=== PATIENT | male | born 1960 | race Hispanic/Latino ===

== ENCOUNTER 2018-04-19 16:46 | Emergency (ER) | payer BC, OTHER ==
[~2018-04-19 16:46] MED LIST: AMOX-429 PO; LISI10TA7 PO; ONDA4TAB10 PO; PANT40TA25 PO; TYL3 PO
[2018-04-19] MEDS ORDERED: ONDANSETRON HCL 4 MG/2 ML VIAL ONE (17:32)
[2018-04-19] MEDS ORDERED: SODIUM CHLORIDE 0.9% 1000ML 1,000 ML IV ONE (17:32)
[2018-04-19 17:35] LABS: BASOPHILS % (AUTO) 0.3 % (0.0-5.0); EOSINOPHILS % (AUTO) 0.1 % (0.0-8.0); HEMATOCRIT 46.1 % (42-54); LYMPHOCYTES % (AUTO) 3.7 % (21.0-51.0); MEAN CORPUSCULAR HEMOGLOBIN 28.5 pg (27.0-33.0); MEAN CORPUSCULAR HGB CONC 34.4 g/dL (32.0-36.0); MEAN CORPUSCULAR VOLUME 82.8 fL (79-99); MONOCYTES % (AUTO) 4.2 % (3.0-13.0); NEUTROPHILS % (AUTO) 91.7 % (40.0-77.0); PLATELET COUNT (AUTO) 239 K/uL (130-400); RED BLOOD CELL COUNT(AUTO) 5.57 MIL/uL (4.50-6.20); RED CELL DISTRIBUTION WIDTH 13.3 % (11.0-15.5); WHITE BLOOD COUNT (AUTO) 10.6 K/uL (4.8-10.8)
[2018-04-19 18:12] LABS: POTASSIUM 3.8 mmol/L (3.5-5.1)
[2018-04-19 18:16] LABS: ALBUMIN 3.6 g/dL (3.5-5.0); BILIRUBIN,TOTAL 0.9 mg/dL (0.2-1.0); TOTAL PROTEIN, SERUM 8.2 g/dL (6.0-8.3)
== END 2018-04-19 19:49 | disposition home or self-care (01) ==
LOC: EDH 16:46
DX: K52.9 Noninfective gastroenteritis and colitis, unspecified (principal); E11.9 Type 2 diabetes mellitus without complications; Z90.49 Acquired absence of other specified parts of digestive tract
CPT/HCPCS: 36415; 80053; 83690; 85025; 93005; 96361; 96374; 99285; J2405; J7030

== ENCOUNTER 2018-05-29 20:20 | Emergency (ER) | payer OTHER ==
[2018-05-29] MEDS ORDERED: IPRATROPIUM/ALBUTEROL SULFATE 3 ML SOLUTION IH ONE (20:46)
[2018-05-29 20:50] LABS: BASOPHILS % (AUTO) 0.4 % (0.0-5.0); HEMATOCRIT 42.2 % (42-54); LYMPHOCYTES % (AUTO) 11.6 % (21.0-51.0); MEAN CORPUSCULAR HEMOGLOBIN 28.5 pg (27.0-33.0); MEAN CORPUSCULAR HGB CONC 34.5 g/dL (32.0-36.0); MEAN CORPUSCULAR VOLUME 82.6 fL (79-99); MONOCYTES % (AUTO) 6.4 % (3.0-13.0); NEUTROPHILS % (AUTO) 80.6 % (40.0-77.0); PLATELET COUNT (AUTO) 239 K/uL (130-400); RED BLOOD CELL COUNT(AUTO) 5.11 MIL/uL (4.50-6.20); RED CELL DISTRIBUTION WIDTH 13.2 % (11.0-15.5); WHITE BLOOD COUNT (AUTO) 11.2 K/uL (4.8-10.8)
[2018-05-29] MEDS ORDERED: METHYLPREDNISOLONE SOD SUCC 40MG/ML 1ML ONE (20:50)
[2018-05-29 20:57] LABS: RAPID GROUP A STREP NEGATIVE (NEGATIVE)
[2018-05-29 21:05] LABS: POTASSIUM 4.1 mmol/L (3.5-5.1)
[2018-05-29 21:11] LABS: ALBUMIN 3.8 g/dL (3.5-5.0); BILIRUBIN,DIRECT 0.2 mg/dL (0.0-0.3); BILIRUBIN,TOTAL 0.6 mg/dL (0.2-1.0); TOTAL PROTEIN, SERUM 8.2 g/dL (6.0-8.3)
[2018-05-29 21:11] LABS: APPEARANCE,URINE Clear (CLEAR); BILIRUBIN,URINE Negative (NEGATIVE); COLOR,URINE Yellow (YELLOW); GLUCOSE, URINE (UA) >=1000 mg/dL (NEGATIVE); KETONES,URINE 15 mg/dL (NEGATIVE); LEUKOCYTE ESTERASE ,URINE Negative (NEGATIVE); NITRATE,URINE Negative (NEGATIVE); OCCULT BLOOD,URINE Negative (NEGATIVE); PROTEIN,URINE Negative (NEGATIVE)
[2018-05-29 21:19] LABS: RBC,URINE 0-1 /HPF (0-1); WBC,URINE 0-1 /HPF (0-1)
[2018-05-29 21:20] LABS: BACTERIA,URINE Rare /HPF (None Seen); MUCUS,URINE Rare LPF (None Seen); SQUAMOUS EPITHELIAL CELL,UR Rare /HPF (0-2)
== END 2018-05-29 23:06 | disposition home or self-care (01) ==
LOC: EDH 20:20
DX: J20.9 Acute bronchitis, unspecified (principal); E11.9 Type 2 diabetes mellitus without complications; Z90.49 Acquired absence of other specified parts of digestive tract
CPT/HCPCS: 36415; 71046; 80048; 80076; 81001; 85025; 87040 ×2; 87804 ×2; 87880; 94640; 94761; 96374; 99285; J2920

== ENCOUNTER 2019-08-04 04:20 | Emergency (ER) | payer OTHER ==
[2019-08-04] MEDS ORDERED: DIAZEPAM 5 MG TABLET ONE (04:56)
[2019-08-04] MEDS ORDERED: KETOROLAC TROMETHAMINE 30MG/ML ONE (04:56)
== END 2019-08-04 06:30 | disposition home or self-care (01) ==
LOC: EDH 04:20
DX: S93.402A Sprain of unspecified ligament of left ankle, initial encounter (principal); E11.9 Type 2 diabetes mellitus without complications; I10 Essential (primary) hypertension; Z98.890 Other specified postprocedural states; X58.XXXA Exposure to other specified factors, initial encounter; Y93.89 Activity, other specified; Y92.098 Other place in other non-institutional residence as the place of occurrence of the external cause; Y99.8 Other external cause status
CPT/HCPCS: 73610; 96372; 99284; J1885

== ENCOUNTER 2019-12-17 23:50 | Inpatient (IN) | payer OTHER ==
[~2019-12-17] VITALS: Ht 170.2 cm; Wt 101.0 kg
[~2019-12-17 23:50] MED LIST changes: -PANT40TA25 PO; +PANT40TA54 PO
[2019-12-18] MEDS ORDERED: ASPIRIN 325 MG TABLET ONE (00:24)
[2019-12-18 00:52] LABS: BASOPHILS % (AUTO) 0.3 % (0.0-5.0); EOSINOPHILS % (AUTO) 2.8 % (0.0-8.0); HEMATOCRIT 42.2 % (42-54); LYMPHOCYTES % (AUTO) 23.3 % (21.0-51.0); MEAN CORPUSCULAR HEMOGLOBIN 27.8 pg (27.0-33.0); MEAN CORPUSCULAR HGB CONC 34.4 g/dL (32.0-36.0); MONOCYTES % (AUTO) 10.2 % (3.0-13.0); PLATELET COUNT (AUTO) 231 K/uL (130-400); RED BLOOD CELL COUNT(AUTO) 5.21 MIL/uL (4.50-6.20); RED CELL DISTRIBUTION WIDTH 12.1 % (11.0-15.5); WHITE BLOOD COUNT (AUTO) 6.8 K/uL (4.8-10.8)
[2019-12-18 00:57] LABS: CREATININE 1.1 mg/dL (0.5-1.5); POTASSIUM 3.8 mmol/L (3.5-5.1)
[2019-12-18] MEDS: NITROGLYCERIN 1GM/1 INCH PACKET TD SCH (01:00)
[2019-12-18 01:01] LABS: ALBUMIN 3.5 g/dL (3.5-5.0); BILIRUBIN,TOTAL 0.4 mg/dL (0.2-1.0); INR 0.93 (0.85-1.15); PARTIAL THROMBOPLASTIN TIME 25.7 SEC (26.3-35.5); PROTHROMBIN TIME 10.1 SEC (9.6-11.6); TOTAL PROTEIN, SERUM 7.9 g/dL (6.0-8.3)
[2019-12-18 01:16] LABS: B-TYPE NATRIURETIC PEPTIDE 34 pg/mL (0-100)
[2019-12-18] MEDS ORDERED: NITROGLYCERIN 1GM/1 INCH PACKET TD ONE ×2 (01:27→08:05)
[2019-12-18] MEDS ORDERED: ACETAMINOPHEN EXTRA STRENGTH 500 MG TABLET ONE (01:27)
[2019-12-18] MEDS ORDERED: GLUCAGON 1MG KIT 1 MG ML IM PRN (02:00)
[2019-12-18] MEDS ORDERED: DEXTROSE 50%-WATER 50 ML DISP.SYRIN IV PRN (02:00)
[2019-12-18] MEDS ORDERED: MORPHINE SULFATE 2 MG/ML 1ML SYG IVP PRN (02:00)
[2019-12-18] MEDS ORDERED: ONDANSETRON HCL 4 MG/2 ML VIAL IV PRN (02:00)
[2019-12-18] MEDS ORDERED: HYDRALAZINE HCL 20 MG/ML VIAL IV PRN (04:00)
[2019-12-18 06:01] LABS: BASOPHILS % (AUTO) 0.5 % (0.0-5.0); EOSINOPHILS % (AUTO) 3.5 % (0.0-8.0); HEMATOCRIT 40.9 % (42-54); LYMPHOCYTES % (AUTO) 22.6 % (21.0-51.0); MEAN CORPUSCULAR HEMOGLOBIN 27.4 pg (27.0-33.0); MEAN CORPUSCULAR HGB CONC 33.7 g/dL (32.0-36.0); MEAN CORPUSCULAR VOLUME 81.2 fL (79-99); MONOCYTES % (AUTO) 11.1 % (3.0-13.0); NEUTROPHILS % (AUTO) 61.8 % (40.0-77.0); PLATELET COUNT (AUTO) 216 K/uL (130-400); RED BLOOD CELL COUNT(AUTO) 5.04 MIL/uL (4.50-6.20); RED CELL DISTRIBUTION WIDTH 12.2 % (11.0-15.5); WHITE BLOOD COUNT (AUTO) 6.3 K/uL (4.8-10.8)
[2019-12-18 06:37] LABS: ALBUMIN 3.2 g/dL (3.5-5.0); BILIRUBIN,TOTAL 0.4 mg/dL (0.2-1.0); THYROID STIMULATING HORMONE 4.57 uIU/mL (0.36-3.74); TOTAL PROTEIN, SERUM 7.2 g/dL (6.0-8.3)
[2019-12-18 06:39] LABS: TROPONIN I 2.18 ng/mL (0.00-0.06)
[2019-12-18 06:56] LABS: HEMOGLOBIN A1C 9.6 % (4.0-6.0)
[2019-12-18] MEDS ORDERED: ENOXAPARIN SODIUM 100 MG/1 ML SQ ONE (08:04)
[2019-12-18] MEDS ORDERED: ASPIRIN 81MG TAB.CHEW ONE (08:04)
[2019-12-18] MEDS ORDERED: HEPARIN 25000 UNITS/250 ML D5W 250 ML IV ONE ×2 (08:05→20:57)
[2019-12-18] MEDS ORDERED: FAMOTIDINE/PF 20 MG/2 ML VIAL IV ONE (08:06)
[2019-12-18] MEDS ORDERED: TICAGRELOR 90 MG TABLET ONE (08:06)
[2019-12-18] MEDS ORDERED: HEPARIN 25000 UNITS/250 ML D5W 250 ML IV PRN (08:15)
[2019-12-18] MEDS ORDERED: TICAGRELOR 90 MG TABLET PO SCH (08:15)
[2019-12-18] MEDS ORDERED: ENOXAPARIN SODIUM 100 MG/1 ML SQ SCH (09:00)
[2019-12-18] MEDS ORDERED: ENOXAPARIN SODIUM 1 MG/KG SQ SCH (09:00)
[2019-12-18] MEDS ORDERED: ASPIRIN 81MG TAB.CHEW PO SCH (09:00)
[2019-12-18] MEDS ORDERED: SODIUM CHLORIDE 0.9% 500ML 500 ML IV SCH (10:25)
[2019-12-18 12:22] LABS: TROPONIN I 2.05 ng/mL (0.00-0.06)
[2019-12-18] MEDS ORDERED: HEPARIN SODIUM 1000UNIT/ML 10ML VIAL IV ONE (14:58)
[2019-12-18] MEDS ORDERED: SODIUM BICARB 8.4% 50ML SYRINGE IVP ONE (14:58)
--- NOTE | 2019-12-18 15:27 | NUR ---
DCP:HOME Sw met with pt who lives with Derrick Pederson [phone]. Pt works at [employer], is independent of all ADLS, no DME or HH services. PCP is Samir Dean and pt uses Ludin okeefe for rx. Plan is home at vt Addendum: 12/18/19 at 1529 by AGATHA ROME Amended: Links added.
[2019-12-18 19:47] LABS: INR 0.97 (0.85-1.15); PARTIAL THROMBOPLASTIN TIME 66.2 SEC (26.3-35.5); PROTHROMBIN TIME 10.5 SEC (9.6-11.6)
[2019-12-19] VITALS (18 sets, daily range): BP systolic 106–150; BP diastolic 56–94
[2019-12-19] MEDS: INSULIN GLARGINE 100 UNITS/ML 10 ML VIAL SQ SCH ×2 (01:00→21:07)
[2019-12-19] MEDS: TICAGRELOR 90 MG TABLET PO SCH ×2 (01:00→09:00)
[2019-12-19] MEDS: INSULIN LISPRO 100 UNIT/ML 3ML SQ SCH ×4 (01:00→17:00)
[2019-12-19] MEDS: ATORVASTATIN CALCIUM 20 MG TABLET PO SCH ×2 (01:00→21:05)
[2019-12-19] MEDS: INSULIN HUMULIN R 100 UNIT/ML 3ML SQ SCH ×5 (01:00→21:00)
[2019-12-19] MEDS: FAMOTIDINE/PF 20 MG/2 ML VIAL IV SCH ×3 (01:00→21:04)
--- NOTE | 2019-12-19 01:03 | NUR ---
Patient arrived in room 404 from ED. No complaints of any chest pain and is aware of the procedure in the am with Dr. John. Night medication were given by SWAPNIL Fritz from ED. Will monitor patient closely
[2019-12-19 02:09] LABS: INR 0.97 (0.85-1.15); PARTIAL THROMBOPLASTIN TIME 82.9 SEC (26.3-35.5); PROTHROMBIN TIME 10.5 SEC (9.6-11.6)
[2019-12-19] MEDS: NITROGLYCERIN 1GM/1 INCH PACKET TD SCH ×3 (05:36→21:08)
[2019-12-19 08:10] LABS: INR 0.97 (0.85-1.15); PARTIAL THROMBOPLASTIN TIME 55.3 SEC (26.3-35.5); PROTHROMBIN TIME 10.5 SEC (9.6-11.6)
[2019-12-19 08:31] LABS: CREATININE 1.2 mg/dL (0.5-1.5); POTASSIUM 4.5 mmol/L (3.5-5.1)
[2019-12-19] MEDS: ASPIRIN 81 MG EC TAB PO SCH (09:00)
[2019-12-19 14:26] LABS: INR 0.97 (0.85-1.15); PARTIAL THROMBOPLASTIN TIME 62.6 SEC (26.3-35.5); PROTHROMBIN TIME 10.5 SEC (9.6-11.6)
[2019-12-19] MEDS ORDERED: LIDOCAINE HCL 2% 20ML ONE (17:36)
[2019-12-19] MEDS ORDERED: NITROGLYCERIN 2 MG/VIAL VIAL IV ONE (17:36)
[2019-12-19] MEDS ORDERED: IOHEXOL 350 MG/ML 100ML INFUS..BTL IV ONE (17:36)
[2019-12-19] MEDS ORDERED: FENTANYL CITRATE PF 50 MCG/1 ML 2ML VIAL ONE (17:36)
[2019-12-19] MEDS ORDERED: MIDAZOLAM HCL 1 MG/ML 2ML VIAL ONE (17:36)
[2019-12-19] MEDS ORDERED: HEPARIN SODIUM 1000UNIT/ML 10ML VIAL ONE (17:39)
[2019-12-19] MEDS ORDERED: NICARDIPINE HCL 25 MG/10 ML ML IV ONE (17:40)
[2019-12-19] MEDS ORDERED: METOPROLOL TARTRATE 25 MG TAB PO SCH (21:00)
[2019-12-20] VITALS (44 sets, daily range): BP systolic 83–164; BP diastolic 52–113
[2019-12-20 04:27] LABS: BASOPHILS % (AUTO) 0.3 % (0.0-5.0); EOSINOPHILS % (AUTO) 1.7 % (0.0-8.0); HEMATOCRIT 39.6 % (42-54); LYMPHOCYTES % (AUTO) 19.9 % (21.0-51.0); MEAN CORPUSCULAR HEMOGLOBIN 27.4 pg (27.0-33.0); MEAN CORPUSCULAR HGB CONC 33.6 g/dL (32.0-36.0); MEAN CORPUSCULAR VOLUME 81.6 fL (79-99); MONOCYTES % (AUTO) 9.4 % (3.0-13.0); NEUTROPHILS % (AUTO) 68.4 % (40.0-77.0); PLATELET COUNT (AUTO) 224 K/uL (130-400); RED BLOOD CELL COUNT(AUTO) 4.85 MIL/uL (4.50-6.20); RED CELL DISTRIBUTION WIDTH 12.3 % (11.0-15.5); WHITE BLOOD COUNT (AUTO) 6.5 K/uL (4.8-10.8)
[2019-12-20 04:45] LABS: B-TYPE NATRIURETIC PEPTIDE 11 pg/mL (0-100)
[2019-12-20 05:34] LABS: MAGNESIUM 1.9 mg/dL (1.80-2.40); POTASSIUM 3.7 mmol/L (3.5-5.1)
[2019-12-20] MEDS: NITROGLYCERIN 1GM/1 INCH PACKET TD SCH ×2 (05:43→12:52)
[2019-12-20] MEDS: INSULIN LISPRO 100 UNIT/ML 3ML SQ SCH ×2 (06:15→12:51)
[2019-12-20] MEDS: INSULIN HUMULIN R 100 UNIT/ML 3ML SQ SCH ×2 (06:16→11:30)
[2019-12-20] MEDS ORDERED: METOPROLOL TARTRATE 25 MG TAB PO SCH (09:00)
[2019-12-20] MEDS: NITROGLYCERIN 0.4 MG SL TAB SL PRN ×3 (09:15→09:25)
[2019-12-20] MEDS: ASPIRIN 81 MG EC TAB PO SCH (09:56)
[2019-12-20] MEDS: FAMOTIDINE/PF 20 MG/2 ML VIAL IV SCH ×2 (09:56→22:17)
[2019-12-20] MEDS ORDERED: NITROGLYCERIN 50 MG/D5% WATER 250 BOT IV SCH ×2 (10:00→20:00)
[2019-12-20] MEDS ORDERED: NITROGLYCERIN 50 MG/D5% WATER 1 BOT ONE ×2 (10:06→11:06)
[2019-12-20] MEDS ORDERED: HEPARIN SODIUM 5000UNIT/ML 1ML VIAL ONE (10:30)
[2019-12-20] MEDS ORDERED: CEFAZOLIN SODIUM 1 GM VIAL IVP PRN (10:30)
[2019-12-20] MEDS ORDERED: HEPARIN SODIUM 5000UNIT/ML 1ML VIAL SQ PRN (10:30)
[2019-12-20] MEDS ORDERED: HEPARIN 25000 UNITS/250 ML D5W 250 ML IV SCH (10:30)
[2019-12-20] MEDS ORDERED: AMINOCAPROIC ACID 250 MG/ML 20 ML VIAL IV ONE ×2 (11:00→11:12)
[2019-12-20] MEDS ORDERED: EPINEPHRINE 1 MG/ML AMPULE ONE (11:00)
[2019-12-20] MEDS ORDERED: HEPARIN SODIUM 1000UNIT/ML 10ML VIAL ONE (11:00)
[2019-12-20] MEDS ORDERED: PROTAMINE SULFATE 10 MG/ML 25ML VIAL IV ONE (11:00)
[2019-12-20] MEDS ORDERED: ESMOLOL HCL 10 MG/ML 10 ML VIAL ONE ×3 (11:00→16:40)
[2019-12-20] MEDS ORDERED: NOREPINEPHRINE BITARTRATE 1 MG/1 ML ML IV ONE (11:00)
[2019-12-20] MEDS ORDERED: LIDOCAINE PF 2% 5ML ABBOJECT ONE ×2 (11:00→11:01)
[2019-12-20] MEDS ORDERED: SODIUM BICARB 50MEQ 50ML VIAL ONE ×4 (11:00→20:27)
[2019-12-20] MEDS ORDERED: PROPOFOL 10 MG/ML 20ML VIAL IV ONE (11:00)
[2019-12-20] MEDS ORDERED: FENTANYL CITRATE PF 50 MCG/1 ML 20ML VIAL IJ ONE (11:01)
[2019-12-20] MEDS ORDERED: MIDAZOLAM HCL 1 MG/ML 2ML VIAL ONE (11:01)
[2019-12-20] MEDS ORDERED: ROCURONIUM 10MG/1ML SYR 10 MG/ML ML ONE ×2 (11:01→20:24)
[2019-12-20] MEDS ORDERED: ETOMIDATE 2 MG/ML 10 ML VIAL ONE (11:05)
[2019-12-20] MEDS ORDERED: CEFAZOLIN SODIUM 1 GM VIAL ONE ×2 (11:06→20:41)
[2019-12-20] MEDS ORDERED: PAPAVERINE HCL 30 MG/ML 2ML VIAL ONE (11:06)
[2019-12-20] MEDS ORDERED: OCTYL 2-CYANOACRYLATE 1 EACH TP ONE (11:06)
[2019-12-20] MEDS ORDERED: SUCCINYLCHOLINE CHLORIDE 20 MG/ML 10 ML VIAL ONE (11:07)
[2019-12-20] MEDS ORDERED: AMIODARONE HCL 50 MG/ML 3 ML VIAL ONE ×2 (11:08→19:26)
[2019-12-20] MEDS ORDERED: EPINEPHRINE 1 MG/ML 30ML VIAL IJ ONE (11:15)
[2019-12-20 11:45] LABS: CHOLESTEROL 124 mg/dL (<200); HDL CHOLESTEROL 82 mg/dL (29-71); LDL DIRECT 81 mg/dL (0-99); TRIGLYCERIDES 52 mg/dL (30-200)
[2019-12-20 11:54] LABS: HEMOGLOBIN A1C 9.7 % (4.0-6.0)
--- NOTE | 2019-12-20 12:56 | NUR ---
Patient experienced sob, n/v, cp, left jaw and arm pain at approximately 0910. Patient alerted me to this pain at 0913. Nitro sublingual administered at 0915, 0920, 0925. No relief of pain reported. Morphine 2 mg administered at approximately [address] Mendenhall was paged. EKG done at that time. orders were give to transfer to ICU immediately. Yoon KRAFT received report.
[2019-12-20 13:25] LABS: INR 1.07 (0.85-1.15); PROTHROMBIN TIME 11.5 SEC (9.6-11.6)
[2019-12-20 13:51] LABS: PARTIAL THROMBOPLASTIN TIME > 120.0 SEC (26.3-35.5)
[2019-12-20] MEDS ORDERED: SODIUM CHLORIDE 0.9% 1000ML 1,000 ML IV ONE (14:35)
--- NOTE | 2019-12-20 16:48 | NUR ---
Pt to CVOR, reports pain-free at time of departure from unit. Report to FIRE LIEUTENANT MARINE, no further questions.
[2019-12-20] MEDS ORDERED: METOPROLOL TARTRATE 1 MG/ML 5ML VIAL IV ONE (17:26)
[2019-12-20 17:34] LABS: ABG BASE EXCESS -4.9 mmol/L (-2.0-3.0); ABG HCO3 19.5 mmol/L (21.0-28.0); ABG OXYGEN SATURATION 99.5 % (95.0-99.0); ABG PCO2 35 mmHg (35-48)
[2019-12-20 18:43] LABS: ABG BASE EXCESS -1.5 mmol/L (-2.0-3.0); ABG HCO3 22.5 mmol/L (21.0-28.0); ABG OXYGEN SATURATION 98.9 % (95.0-99.0); ABG PCO2 36 mmHg (35-48)
[2019-12-20] MEDS ORDERED: SODIUM BICARB 8.4% 50ML SYRINGE ONE (18:59)
[2019-12-20] MEDS ORDERED: GLYCOPYRROLATE 1 MG/5 ML SYRINGE ONE (19:04)
[2019-12-20 19:12] LABS: ABG BASE EXCESS 0.8 mmol/L (-2.0-3.0); ABG HCO3 24.7 mmol/L (21.0-28.0); ABG PCO2 37 mmHg (35-48)
[2019-12-20 19:27] LABS: ABG HCO3 25.6 mmol/L (21.0-28.0); ABG OXYGEN SATURATION 92.3 % (95.0-99.0); ABG PCO2 41 mmHg (35-48)
[2019-12-20] MEDS ORDERED: AMIODARONE HCL 450 MG in DEXTROSE 5%-WATER 250 ML IV PRN (19:30)
[2019-12-20] MEDS ORDERED: AMIODARONE HCL 360 MG in DEXTROSE 5%-WATER 200 ML IV SCH (19:45)
[2019-12-20] MEDS ORDERED: DIGOXIN 250 MCG/ML 2ML AMP ONE (19:45)
[2019-12-20] MEDS ORDERED: POTASSIUM CHLORIDE 20MEQ/100ML 200 ML IV ONE (19:49)
[2019-12-20] MEDS ORDERED: SODIUM CHLORIDE 0.9% 500ML 500 ML IV SCH (19:53)
[2019-12-20] MEDS ORDERED: SODIUM CHLORIDE 0.9% 250 ML IV PRN (20:00)
[2019-12-20] MEDS ORDERED: ACETAMINOPHEN 650 MG SUPPOSITORY RC PRN (20:00)
[2019-12-20] MEDS ORDERED: SODIUM CHLORIDE 0.9% 1000ML 1,000 ML IV SCH (20:00)
[2019-12-20] MEDS ORDERED: MORPHINE SULFATE 2 MG/ML 1ML SYG IV PRN ×2 (20:00)
[2019-12-20] MEDS ORDERED: SODIUM CHLORIDE 0.9% 10 ML VIAL IVP PRN (20:00)
[2019-12-20] MEDS ORDERED: TRAMADOL HCL 50 MG TABLET PO PRN ×2 (20:00)
[2019-12-20] MEDS ORDERED: DEXTROSE 50%-WATER 50 ML DISP.SYRIN IV PRN (20:00)
[2019-12-20] MEDS ORDERED: GLUCAGON 1MG KIT 1 MG ML IM PRN (20:00)
[2019-12-20] MEDS ORDERED: EPINEPHRINE 2 MG in DEXTROSE 5%-WATER 250 ML IV PRN (20:00)
[2019-12-20] MEDS ORDERED: NOREPINEPHRINE 4MG/NS 250ML 250 ML IV PRN (20:00)
[2019-12-20] MEDS ORDERED: ACETAMINOPHEN 325 MG TAB PO PRN ×2 (20:00)
[2019-12-20] MEDS ORDERED: ONDANSETRON HCL 4 MG/2 ML VIAL IV PRN (20:00)
[2019-12-20] MEDS ORDERED: PROPOFOL 1000 MG/100 ML 100 ML IV PRN (20:00)
[2019-12-20] MEDS ORDERED: POTASSIUM PHOS 15 mMOL+NS250ML 250 ML IV PRN (20:00)
[2019-12-20] MEDS ORDERED: ALBUMIN (HUMAN) 5% 250 ML IV PRN (20:00)
[2019-12-20] MEDS ORDERED: AMINOCAPROIC ACID 15,000 MG in SODIUM CHLORIDE 0.9% 250 ML IV SCH (20:00)
[2019-12-20 20:02] LABS: ABG BASE EXCESS 0.2 mmol/L (-2.0-3.0); ABG HCO3 24.2 mmol/L (21.0-28.0); ABG OXYGEN SATURATION 98.3 % (95.0-99.0); ABG PCO2 37 mmHg (35-48)
[2019-12-20] MEDS ORDERED: ATROPINE SULFATE 0.1 MG/ML 10 ML SYG IVP ONE (20:27)
[2019-12-20] MEDS ORDERED: PHARMACY COMMUNICATION MISC SCH (20:30)
[2019-12-20 20:32] LABS: ABG BASE EXCESS -1.4 mmol/L (-2.0-3.0); ABG HCO3 22.9 mmol/L (21.0-28.0); ABG OXYGEN SATURATION 97.9 % (95.0-99.0); ABG PCO2 37 mmHg (35-48)
[2019-12-20] MEDS ORDERED: EPINEPHRINE 10 MG in SODIUM CHLORIDE 0.9% 250 ML IV SCH (20:45)
[2019-12-20] MEDS ORDERED: NOREPINEPHRINE BITARTRATE 8 MG/NS 250ML IV SCH ×2 (20:45)
[2019-12-20] MEDS: ATORVASTATIN CALCIUM 20 MG TABLET PO SCH (21:00)
--- NOTE | 2019-12-20 21:30 | NUR ---
CVR PT ARRIVED TO CVR AT 2104. PT SEDATED AND INTUBATED PLACED ON MECHANICAL VENTILATION VIA ET TUBE 8.0 TAPPED AT APPROXIMATELY 22 CM AT LIP. VENT SETTING SIMV RATE 12, VT 750, PEEP 7, FIO2 80% AND PS 10. COARSE BREATH SOUNDS AUSCULTATED TO ALL LUNG FUENTES. OG TUBE NOTED PLACEMENT ASSESSED AND CONFIRMED WITH AIR BOLUS THEN PLACED TO LIWS BOWEL SOUNDS ABSENT AT THIS TIME. MID LINE INCISION DRESSING DRY AND INTACT. MEDIASTINAL CHEST TUBES X 2 NOTED PLACED TO 20CM H20 SUCTION DRAINAGE IS SANGUINEOUS IN COLOR. RIGHT FEMORAL IABP NOTED SET AT 1:1. BUSTOS TO GRAVITY DRAINAGE IS PALE YELLOW. LEFT LEG WRAPPED WITH CAESAR BANDAGE. RIJ CORDIS WITH SWAN AT APPROXIMATELY 56CM. LEFT RADIAL A LINE. PIV TO LEFT FOREARM AND RIGHT AC FLUSH WELL. IV DRIPS LEVOPHED AT 5MCG/MIN, EPINEPHRINE AT 0.05 MCG/KG/MIN, AMICAR AT 50ML/HR, AMIODARONE AT 33.3 ML/HR. SEE ASSESSMENT.
[2019-12-20 21:42] LABS: ABG HCO3 25.1 mmol/L (21.0-28.0); ABG OXYGEN SATURATION 96.8 % (95.0-99.0); ABG PCO2 47 mmHg (35-48)
[2019-12-20 21:59] LABS: HEMATOCRIT 40.4 % (42-54); MEAN CORPUSCULAR HGB CONC 34.2 g/dL (32.0-36.0); MEAN CORPUSCULAR VOLUME 82.1 fL (79-99); PLATELET COUNT (AUTO) 306 K/uL (130-400); RED BLOOD CELL COUNT(AUTO) 4.92 MIL/uL (4.50-6.20); RED CELL DISTRIBUTION WIDTH 12.4 % (11.0-15.5); WHITE BLOOD COUNT (AUTO) 29.5 K/uL (4.8-10.8)
[2019-12-20 22:07] LABS: INR 1.03 (0.85-1.15); PARTIAL THROMBOPLASTIN TIME 19.9 SEC (26.3-35.5); PROTHROMBIN TIME 11.1 SEC (9.6-11.6)
[2019-12-20 22:10] LABS: CREATININE 1.4 mg/dL (0.5-1.5); MAGNESIUM 1.5 mg/dL (1.80-2.40); PHOSPHORUS 4.8 mg/dL (2.5-4.9); POTASSIUM 3.3 mmol/L (3.5-5.1)
[2019-12-20] MEDS: SODIUM BICARB 50MEQ 50ML VIAL IV PRN ×3 (22:16→22:56)
[2019-12-20] MEDS: POTASSIUM CHLORIDE 20MEQ/100ML 100 ML IV PRN ×3 (22:16→23:06)
[2019-12-20] MEDS: INSULIN REGULAR, HUMAN 3ML 100 UNIT in SODIUM CHLORIDE 0.9% 99 ML IV SCH ×2 (22:18)
[2019-12-20] MEDS: MAGNESIUM 2GM PREMIX 50ML 50 ML IV PRN (22:46)
[2019-12-20 22:51] LABS: ABG BASE EXCESS -2.3 mmol/L (-2.0-3.0); ABG HCO3 23.1 mmol/L (21.0-28.0); ABG OXYGEN SATURATION 97.9 % (95.0-99.0); ABG PCO2 42 mmHg (35-48)
[2019-12-20] MEDS ORDERED: ALBUMIN (HUMAN) 5% 250 ML IV ONE (23:11)
[2019-12-21] VITALS (67 sets, daily range): BP systolic 74–142; BP diastolic 44–82
[2019-12-21 00:03] LABS: ABG BASE EXCESS -2.4 mmol/L (-2.0-3.0); ABG OXYGEN SATURATION 98.3 % (95.0-99.0); ABG PCO2 37 mmHg (35-48)
[2019-12-21] MEDS: SODIUM BICARB 50MEQ 50ML VIAL IV PRN ×4 (00:04→02:17)
[2019-12-21] MEDS: POTASSIUM CHLORIDE 20MEQ/100ML 100 ML IV PRN ×8 (00:04→05:40)
[2019-12-21] MEDS ORDERED: ALBUMIN (HUMAN) 5% 250 ML IV ONE (00:19)
[2019-12-21] MEDS: DIGOXIN 250 MCG/ML 2ML AMP IV SCH ×2 (00:35→06:33)
[2019-12-21] MEDS ORDERED: CEFAZOLIN SODIUM 1 GM VIAL IV SCH (01:00)
[2019-12-21 01:10] LABS: ABG BASE EXCESS -1.2 mmol/L (-2.0-3.0); ABG HCO3 23.5 mmol/L (21.0-28.0); ABG OXYGEN SATURATION 98.2 % (95.0-99.0); ABG PCO2 40 mmHg (35-48)
[2019-12-21] MEDS ORDERED: CALCIUM GLUCONATE 1 GM/10 ML VIAL IV ONE (01:14)
[2019-12-21] MEDS: CALCIUM GLUCONATE 1 GM in SODIUM CHLORIDE 0.9% 50 ML IV PRN ×3 (01:15→23:48)
[2019-12-21] MEDS: CEFAZOLIN SODIUM 1 GM VIAL IV SCH ×3 (02:05→17:17)
[2019-12-21 02:09] LABS: ABG OXYGEN SATURATION 97.4 % (95.0-99.0); ABG PCO2 36 mmHg (35-48)
[2019-12-21] MEDS ORDERED: SODIUM BICARB 50MEQ 50ML VIAL ONE (02:31)
[2019-12-21] MEDS ORDERED: FUROSEMIDE 10 MG/ML 4ML VIAL IV SCH (03:00)
[2019-12-21 03:05] LABS: ABG BASE EXCESS 1.3 mmol/L (-2.0-3.0); ABG HCO3 25.4 mmol/L (21.0-28.0); ABG OXYGEN SATURATION 96.7 % (95.0-99.0); ABG PCO2 38 mmHg (35-48)
--- NOTE | 2019-12-21 03:22 | NUR ---
LASIX LASIX HELD AT THIS TIME BREATH SOUNDS CLEAR AND URINE OUTPUT HAS BEEN ADEQUATE > 200 ML/HR.
[2019-12-21 04:32] LABS: INR 1.04 (0.85-1.15); PARTIAL THROMBOPLASTIN TIME 26.8 SEC (26.3-35.5); PROTHROMBIN TIME 11.2 SEC (9.6-11.6)
[2019-12-21 04:46] LABS: CREATININE 1.7 mg/dL (0.5-1.5); MAGNESIUM 1.8 mg/dL (1.80-2.40); POTASSIUM 3.5 mmol/L (3.5-5.1)
[2019-12-21 04:59] LABS: ABG BASE EXCESS 3.2 mmol/L (-2.0-3.0); ABG HCO3 26.1 mmol/L (21.0-28.0); ABG OXYGEN SATURATION 97.7 % (95.0-99.0); ABG PCO2 34 mmHg (35-48)
[2019-12-21 05:07] LABS: BASOPHILS % (AUTO) 0.1 % (0.0-5.0); HEMATOCRIT 34.8 % (42-54); LYMPHOCYTES % (AUTO) 3.5 % (21.0-51.0); MEAN CORPUSCULAR HEMOGLOBIN 27.7 pg (27.0-33.0); MEAN CORPUSCULAR HGB CONC 33.3 g/dL (32.0-36.0); MEAN CORPUSCULAR VOLUME 83.1 fL (79-99); MONOCYTES % (AUTO) 7.8 % (3.0-13.0); NEUTROPHILS % (AUTO) 88.1 % (40.0-77.0); PLATELET COUNT (AUTO) 257 K/uL (130-400); RED BLOOD CELL COUNT(AUTO) 4.19 MIL/uL (4.50-6.20); RED CELL DISTRIBUTION WIDTH 12.5 % (11.0-15.5); WHITE BLOOD COUNT (AUTO) 20.5 K/uL (4.8-10.8)
[2019-12-21] MEDS: MAGNESIUM 2GM PREMIX 50ML 50 ML IV PRN (05:12)
[2019-12-21 05:19] LABS: PHOSPHORUS 0.3 mg/dL (2.5-4.9)
[2019-12-21] MEDS ORDERED: PHARMACY COMMUNICATION MISC SCH (05:30)
--- NOTE | 2019-12-21 06:45 | NUR ---
DR. CHRISTOPHER WHITE APPROACHED AT THIS TIME FOR IABP PLACEMENT ON XRAY WHICH HE ADVANCED AT THIS TIME. CHEST X RAY ORDERED. WILL CONTINUE TO MONITOR.
--- NOTE | 2019-12-21 08:45 | NUR ---
DR. NESBITT HERE AND WAS GIVEN REPORT ON THE NIGHT EVENTS AND HEMODYNAMICS DURING THE NIGHT. WAS ADVISED OF THE IABP PLACEMENT AND DR. WHITE ADJUSTING THE IABP POSITION AND XRAY WAS DONE. COAG STUDIES WERE ADVISED AND THE IABP WAS DC'D PER DR. NESBITT AND PRESSURE WAS HELD FOR 30 MINUTES.
[2019-12-21] MEDS ORDERED: ASPIRIN 81MG TAB.CHEW NG SCH (09:00)
[2019-12-21 09:35] LABS: ABG BASE EXCESS 7.8 mmol/L (-2.0-3.0); ABG HCO3 31.5 mmol/L (21.0-28.0); ABG OXYGEN SATURATION 95.2 % (95.0-99.0); ABG PCO2 41 mmHg (35-48)
--- NOTE | 2019-12-21 09:40 | NUR ---
PT WAS WEANED TO RR OF 4 AND MET PARAMETERS REQUIRED FOR EXTUBATION AND WAS EXTUBATED PER PROTOCOL. AEROSOL MASK WAS OBTAINED AND PLACED AT 40%.
[2019-12-21] MEDS: FAMOTIDINE/PF 20 MG/2 ML VIAL IV SCH ×2 (09:58→21:10)
[2019-12-21] MEDS: DIGOXIN 125 MCG TABLET PO SCH ×3 (09:59→16:26)
[2019-12-21] MEDS: AMIODARONE HCL 200 MG TABLET PO SCH ×2 (10:00→21:10)
[2019-12-21] MEDS: FUROSEMIDE 10 MG/ML 4ML VIAL IV SCH ×2 (10:33→21:13)
--- NOTE | 2019-12-21 13:53 | NUR ---
Brand new surgery in AM. Wait PT for Sunday. Addendum: 12/21/19 at 1355 by ALFA GEORGE, PT PT Amended: Links added.
[2019-12-21] MEDS: INSULIN REGULAR, HUMAN 3ML 100 UNIT in SODIUM CHLORIDE 0.9% 99 ML IV SCH ×2 (16:29)
--- NOTE | 2019-12-21 16:45 | NUR ---
PT WAS TRANSFERRED TO ROOM 209. PT HAD O2 CHANGED TO NASAL CANNULA AT 5 LITERS. PT WAS ASSESSED BY DR. MARSH AND ORDERS NOTED ABG'S WERE OBTAINED AND DR. MARSH WAS NOTIFIED OF RESULTS. RESP. THERAPISTS WERE NOTIFIED OF BIPAP ORDERS.
[2019-12-21 17:06] LABS: ABG BASE EXCESS 9.2 mmol/L (-2.0-3.0); ABG HCO3 32.6 mmol/L (21.0-28.0); ABG OXYGEN SATURATION 92.4 % (95.0-99.0); ABG PCO2 40 mmHg (35-48)
[2019-12-21] MEDS: ATORVASTATIN CALCIUM 40 MG TABLET PO SCH (21:10)
[2019-12-21 22:52] LABS: CREATININE 1.6 mg/dL (0.5-1.5); POTASSIUM 4.5 mmol/L (3.5-5.1)
[2019-12-22] VITALS (37 sets, daily range): BP systolic 87–133; BP diastolic 36–71
[2019-12-22 04:24] LABS: BASOPHILS % (AUTO) 0.2 % (0.0-5.0); EOSINOPHILS % (AUTO) 0.7 % (0.0-8.0); LYMPHOCYTES % (AUTO) 6.1 % (21.0-51.0); MEAN CORPUSCULAR HGB CONC 32.9 g/dL (32.0-36.0); MEAN CORPUSCULAR VOLUME 85.4 fL (79-99); MONOCYTES % (AUTO) 8.6 % (3.0-13.0); NEUTROPHILS % (AUTO) 83.9 % (40.0-77.0); PLATELET COUNT (AUTO) 144 K/uL (130-400); RED CELL DISTRIBUTION WIDTH 13.2 % (11.0-15.5); WHITE BLOOD COUNT (AUTO) 17.4 K/uL (4.8-10.8)
[2019-12-22 04:38] LABS: CREATININE 1.5 mg/dL (0.5-1.5); POTASSIUM 4.3 mmol/L (3.5-5.1)
[2019-12-22 05:06] LABS: MAGNESIUM 2.1 mg/dL (1.80-2.40); PHOSPHORUS 3.8 mg/dL (2.5-4.9)
[2019-12-22 05:08] LABS: INR 1.19 (0.85-1.15); PARTIAL THROMBOPLASTIN TIME 34.5 SEC (26.3-35.5); PROTHROMBIN TIME 12.8 SEC (9.6-11.6)
[2019-12-22] MEDS: FAMOTIDINE 20MG TAB 20 MG TAB PO SCH (08:27)
[2019-12-22] MEDS: AMIODARONE HCL 200 MG TABLET PO SCH ×2 (08:27→21:16)
[2019-12-22] MEDS: FUROSEMIDE 10 MG/ML 2ML VIAL IV SCH ×2 (08:27→21:15)
[2019-12-22] MEDS: ASPIRIN 325MG EC TAB 325 MG TABLET.DR PO SCH (08:28)
--- NOTE | 2019-12-22 10:36 | NUR ---
CHEST TUBE, SWAN-PORFIRIO CATHETER REMOVAL Chest tube x2 and swan-porfirio catheter removed by Paula Tinajero RN. No complications. Pt tolerated well. Dressings intact.
[2019-12-22] MEDS: ENOXAPARIN SODIUM 30 MG/0.3 ML SQ SCH (11:19)
[2019-12-22] MEDS: INSULIN HUMULIN R 100 UNIT/ML 3ML SQ SCH ×3 (11:22→21:17)
[2019-12-22] MEDS ORDERED: LACTULOSE 20 GM/30 ML UDCUP PO PRN (13:00)
[2019-12-22] MEDS: DOCUSATE SODIUM 100 MG CAP PO SCH ×2 (13:00→21:15)
--- NOTE | 2019-12-22 15:00 | NUR ---
BMX1 -[facility]
--- NOTE | 2019-12-22 15:30 | NUR ---
[facility] to SW[facility]IL Russell. All questions answered. Pt transported to 416 by RN x2. Pt's updated on pt status and room change.
[2019-12-22] MEDS: ATORVASTATIN CALCIUM 40 MG TABLET PO SCH (21:15)
[2019-12-23 04:05] LABS: BASOPHILS % (AUTO) 0.2 % (0.0-5.0); EOSINOPHILS % (AUTO) 1.4 % (0.0-8.0); HEMATOCRIT 34.2 % (42-54); LYMPHOCYTES % (AUTO) 8.2 % (21.0-51.0); MEAN CORPUSCULAR HEMOGLOBIN 27.6 pg (27.0-33.0); MEAN CORPUSCULAR HGB CONC 32.2 g/dL (32.0-36.0); MEAN CORPUSCULAR VOLUME 85.7 fL (79-99); MONOCYTES % (AUTO) 6.2 % (3.0-13.0); PLATELET COUNT (AUTO) 113 K/uL (130-400); RED BLOOD CELL COUNT(AUTO) 3.99 MIL/uL (4.50-6.20); RED CELL DISTRIBUTION WIDTH 12.6 % (11.0-15.5); WHITE BLOOD COUNT (AUTO) 12.5 K/uL (4.8-10.8)
[2019-12-23 04:26] LABS: ALBUMIN 2.4 g/dL (3.5-5.0); BILIRUBIN,TOTAL 1.5 mg/dL (0.2-1.0); CREATININE 1.7 mg/dL (0.5-1.5); MAGNESIUM 2.1 mg/dL (1.80-2.40); PHOSPHORUS 2.5 mg/dL (2.5-4.9); POTASSIUM 3.8 mmol/L (3.5-5.1); TOTAL PROTEIN, SERUM 6.4 g/dL (6.0-8.3)
[2019-12-23 04:31] VITALS: BP 117/70
[2019-12-23] MEDS: INSULIN HUMULIN R 100 UNIT/ML 3ML SQ SCH ×4 (06:29→21:00)
[2019-12-23 08:24] VITALS: BP 119/66
[2019-12-23] MEDS ORDERED: POLYETHYLENE GLYCOL 3350 17 GM POWD.PACK PO SCH (09:00)
[2019-12-23] MEDS: ASPIRIN 325MG EC TAB 325 MG TABLET.DR PO SCH (10:23)
[2019-12-23] MEDS: AMIODARONE HCL 200 MG TABLET PO SCH ×2 (10:23→20:17)
[2019-12-23] MEDS: FAMOTIDINE 20MG TAB 20 MG TAB PO SCH (10:23)
[2019-12-23] MEDS: FUROSEMIDE 10 MG/ML 2ML VIAL IV SCH ×2 (10:24→20:16)
[2019-12-23] MEDS: DOCUSATE SODIUM 100 MG CAP PO SCH ×2 (10:24→20:17)
[2019-12-23] MEDS: ENOXAPARIN SODIUM 30 MG/0.3 ML SQ SCH (10:25)
[2019-12-23 11:39] VITALS: BP 115/70
[2019-12-23 16:35] VITALS: BP 118/68
--- NOTE | 2019-12-23 16:36 | NUR ---
CM NOTE/[facility] NEW REFERRAL FOR IRU. MEET WITH PATIENT IN ROOM, OPTIONS FOR IRU GIVEN BASED ON INSURANCE. ANJELICA FILLED FOR [facility], CLINICAL PACKET FAXED AND CONFIRMED RECEIVED. PENDING AUTHORIZATION, CM TO FOLLOW UP.
[2019-12-23 20:00] VITALS: BP 113/66
[2019-12-23] MEDS: ATORVASTATIN CALCIUM 40 MG TABLET PO SCH (20:17)
[2019-12-23] MEDS: METOPROLOL TARTRATE 25 MG TAB PO SCH (20:17)
[2019-12-23 23:03] VITALS: BP 105/65
[2019-12-24 03:05] VITALS: BP 121/71
[2019-12-24 04:37] LABS: BASOPHILS % (AUTO) 0.2 % (0.0-5.0); HEMATOCRIT 33.5 % (42-54); LYMPHOCYTES % (AUTO) 7.5 % (21.0-51.0); MEAN CORPUSCULAR HGB CONC 33.1 g/dL (32.0-36.0); MEAN CORPUSCULAR VOLUME 84.6 fL (79-99); MONOCYTES % (AUTO) 8.4 % (3.0-13.0); NEUTROPHILS % (AUTO) 83.1 % (40.0-77.0); PLATELET COUNT (AUTO) 130 K/uL (130-400); RED BLOOD CELL COUNT(AUTO) 3.96 MIL/uL (4.50-6.20); WHITE BLOOD COUNT (AUTO) 9.9 K/uL (4.8-10.8)
[2019-12-24 04:50] LABS: ALBUMIN 2.1 g/dL (3.5-5.0); BILIRUBIN,DIRECT 0.2 mg/dL (0.0-0.3); BILIRUBIN,TOTAL 0.9 mg/dL (0.2-1.0); CREATININE 1.3 mg/dL (0.5-1.5); MAGNESIUM 2.2 mg/dL (1.80-2.40); PHOSPHORUS 2.8 mg/dL (2.5-4.9); POTASSIUM 3.3 mmol/L (3.5-5.1); TOTAL PROTEIN, SERUM 6.3 g/dL (6.0-8.3)
[2019-12-24] MEDS ORDERED: POTASSIUM CHLORIDE 20 MEQ ERTAB PO ONE (05:06)
[2019-12-24] MEDS ORDERED: POTASSIUM CHLORIDE 10% ELIXIR 20 MEQ/15 ML UDCUP PO PRN (05:15)
[2019-12-24 07:00] VITALS: BP 127/72
[2019-12-24] MEDS: INSULIN HUMULIN R 100 UNIT/ML 3ML SQ SCH ×4 (07:16→21:00)
[2019-12-24] MEDS: ENOXAPARIN SODIUM 30 MG/0.3 ML SQ SCH (09:38)
[2019-12-24] MEDS: METOPROLOL TARTRATE 25 MG TAB PO SCH ×2 (09:39→20:56)
[2019-12-24] MEDS: AMIODARONE HCL 200 MG TABLET PO SCH (09:39)
[2019-12-24] MEDS: ASPIRIN 325MG EC TAB 325 MG TABLET.DR PO SCH (09:40)
[2019-12-24] MEDS: FAMOTIDINE 20MG TAB 20 MG TAB PO SCH (09:40)
[2019-12-24] MEDS: DOCUSATE SODIUM 100 MG CAP PO SCH ×2 (09:40→20:57)
[2019-12-24] MEDS: FUROSEMIDE 10 MG/ML 2ML VIAL IV SCH ×2 (09:42→20:56)
--- NOTE | 2019-12-24 10:00 | NUR ---
dressing's removed from upper chest, upper abdoman and right groin; pt has well approx. inc. line to chest with dermabond glue in place, slight redness along inc. line no drainage or edema, abdoman has 2 small lacerations at site of chest tubes which are now removed, a suture is in place to each approx. the edges of the wound, no fresh drainage and small amount of old drainage on non adherant dressings in place; the groin skin is wnl and the vein harvest site on left leg is well approx. with dermabond--no redness, drainage or edema; all areas left robyn; pt rajwinder. proc. well.
[2019-12-24 11:00] VITALS: BP 109/69
[2019-12-24] MEDS ORDERED: FUROSEMIDE 10 MG/ML 4ML VIAL IV SCH (11:00)
[2019-12-24] MEDS: POTASSIUM CHLORIDE 20 MEQ ERTAB PO PRN ×2 (11:44→16:56)
[2019-12-24] MEDS ORDERED: LOPERAMIDE HCL 2 MG CAP PO PRN (12:45)
[2019-12-24] MEDS ORDERED: LOPERAMIDE HCL 2 MG CAP PO SCH (12:45)
--- NOTE | 2019-12-24 13:30 | NUR ---
during rounding pt stated he had a liquid bm and asked to be cleaned; i asked him how many liquid bm's he had in the past 24 hours and he stated probably 5; i cleaned him up and collected a stool sample to r/u c-diff; while cleaning him up i noted a bruised area on his right butt cheek approx. and a skin tear on his left near his rectum; i have gently cleansed the entire area and applied skin barrier cream; and will apply a waffle mattress and order a wound care consult. sample sent to lab. pt made comfortable in bed, picture taken of wound and developed
[2019-12-24 16:00] VITALS: BP 106/67
--- NOTE | 2019-12-24 16:50 | NUR ---
CM NOTE/ VB IRU VS [facility] CASE DISCUSSED WITH DR. TUCKER. PER NURSE, DR. TORRES PENDING TO ROUND AND SEE PATIENT. DR. TUCKER MADE AWARE OF VB IRU ACCEPTANCE BUT PENDING BED UNTIL TUESDAY 12/26. PER MDDR. TORRES TO DECIDE IF WHEN DC DATE IS. PRIMARY NURSE, GM RN, WILL CALL DR. TORRES TO SEE WHEN PATIENT CAN DC. CALL MADE TO SPOUSE, KALANI JAMIL [phone] AND TOLD HER ABOUT VB IRU. PER SPOUSE, OPEN TO [facility], ANJELICA FILLED. CASE DISCUSSED WITH PATIENT, WOULD LIKE TO STAY IN [facility] BUT WILLING TO STAY AT [facility] IF NEEDED. GM KRAFT AND BRI RN INSTRUCTED TO CALL DR. TORRES OR DR. PAINTING FOR ANTICIPATED DC DATE. REFERRAL SET TO [facility], JEET CONFIRMED RECEIVED. I PLACED CALL TO DR. MERT MD TO LAST ROUND, NO ANSWER, UNABLE TO LEAVE VOICEMAIL. PENDING ANTICIPATED DC DATE, STILL ON LASIX IV. CM TO FOLLOW UP.
[2019-12-24 17:42] LABS: CREATININE 1.2 mg/dL (0.5-1.5); POTASSIUM 3.2 mmol/L (3.5-5.1)
[2019-12-24 19:43] VITALS: BP 120/70
[2019-12-24] MEDS: ATORVASTATIN CALCIUM 40 MG TABLET PO SCH (20:56)
[2019-12-24 23:19] VITALS: BP 103/57
[2019-12-25 04:15] VITALS: BP 110/65
[2019-12-25] MEDS: INSULIN HUMULIN R 100 UNIT/ML 3ML SQ SCH ×4 (06:20→21:51)
[2019-12-25 06:56] LABS: CREATININE 1.1 mg/dL (0.5-1.5); POTASSIUM 3.3 mmol/L (3.5-5.1)
[2019-12-25 08:11] VITALS: BP 126/72
[2019-12-25] MEDS: DOCUSATE SODIUM 100 MG CAP PO SCH ×2 (10:18→20:46)
[2019-12-25] MEDS: FAMOTIDINE 20MG TAB 20 MG TAB PO SCH (10:18)
[2019-12-25] MEDS: METOPROLOL TARTRATE 25 MG TAB PO SCH ×2 (10:18→20:46)
[2019-12-25] MEDS: ASPIRIN 325MG EC TAB 325 MG TABLET.DR PO SCH (10:18)
[2019-12-25] MEDS: AMIODARONE HCL 200 MG TABLET PO SCH (10:19)
[2019-12-25] MEDS: FUROSEMIDE 10 MG/ML 2ML VIAL IV SCH ×2 (10:19→20:46)
[2019-12-25] MEDS: ENOXAPARIN SODIUM 30 MG/0.3 ML SQ SCH (10:20)
[2019-12-25] MEDS: POTASSIUM CHLORIDE 20 MEQ ERTAB PO PRN ×2 (10:21→12:46)
--- NOTE | 2019-12-25 10:48 | NUR ---
RDSCREEN - LOS X 6 Pt admitted with Acute Chest Pain. Pt s/p CABG. Upon visit, Pt reports poor appetite, no report of GI distress. Preference for fruit with meals. Pt with Buttock Ulcer, Left and Right (DTI). RD provided CABG, Wound Healing, Mediterranean Nutrition Education Pt with Obesity Class II (BMI 35.3). Recommend add Glucerna BID Recommend Tristan BID for wound healing support Recommend 500mg Ascorbic Acid, 220mg ZnSO4 for wound healing support Recommend continue Heart Healthy, 75gm CC Diet Order. RD to continue to monitor. Please notify as additional nutrition concerns arise. Thank you. Addendum: 12/25/19 at [address] Amended: Links added.
--- NOTE | 2019-12-25 10:55 | NUR ---
NUTRITION EDUCATION YUAN provided CABG/Meditteranean/Wound Healing Nutrition Education. YUAN reviewed reference materials and handouts with Pt and answered all Pt questions. Pt verbalized understanding. Addendum: 12/25/19 at [address] Amended: Links added.
[2019-12-25 11:39] VITALS: BP 114/69
--- NOTE | 2019-12-25 15:17 | NUR ---
CM NOTE/ IRU APPROVED PER NEMESIO AT IRU, AUTHORIZATION RECEIVED. PATIENT TO BE TRANSFERRED TOMORROW AFTER IV LASIX COMPLETED PER DR. PADGETT. FAMILY AND PRIMARY NURSE, ALEXANDRIA KRAFT, MADE AWARE.
--- NOTE | 2019-12-25 16:28 | NUR ---
[facility] consult Patient assessed as ordered. [facility] recommendations submitted per protocol. Addendum: 12/25/19 at 1628 by RENEE ADEN RN/ Amended: Links added.
[2019-12-25] MEDS ORDERED: FUROSEMIDE 20 MG TABLET PO SCH (17:00)
[2019-12-25 17:45] VITALS: BP 111/59
[2019-12-25 20:00] VITALS: BP 106/62
[2019-12-25] MEDS: ATORVASTATIN CALCIUM 40 MG TABLET PO SCH (20:46)
[2019-12-26] VITALS: BP 89/55
[2019-12-26 04:00] VITALS: BP 106/62
[2019-12-26] MEDS: INSULIN HUMULIN R 100 UNIT/ML 3ML SQ SCH ×3 (06:30→15:57)
[2019-12-26 07:00] VITALS: BP 117/68
[2019-12-26] MEDS: FUROSEMIDE 10 MG/ML 2ML VIAL IV SCH (08:54)
[2019-12-26] MEDS: AMIODARONE HCL 200 MG TABLET PO SCH (08:57)
[2019-12-26] MEDS: FAMOTIDINE 20MG TAB 20 MG TAB PO SCH (08:59)
[2019-12-26] MEDS: METOPROLOL TARTRATE 25 MG TAB PO SCH (08:59)
[2019-12-26] MEDS: DOCUSATE SODIUM 100 MG CAP PO SCH (08:59)
[2019-12-26] MEDS ORDERED: HONEY 1 APPL/ML TUBE TP SCH (09:00)
[2019-12-26] MEDS ORDERED: CLOPIDOGREL BISULFATE 75 MG TAB PO SCH (09:00)
[2019-12-26] MEDS ORDERED: ASPIRIN 81MG TAB.CHEW PO SCH (09:00)
[2019-12-26] MEDS: ENOXAPARIN SODIUM 30 MG/0.3 ML SQ SCH (09:00)
[2019-12-26 11:00] VITALS: BP 118/71
[2019-12-26 12:20] VITALS: BP 139/82
[2019-12-26] MEDS ORDERED: POTASSIUM CHLORIDE 20 MEQ ERTAB PO SCH (14:00)
--- NOTE | 2019-12-26 15:45 | NUR ---
SBAR REPORT GIVEN TO MARCELLA BRUNO RN OF [facility]. ALL QUESTIONS ANSWERED.
[2019-12-26 15:52] VITALS: BP 128/57
--- NOTE | 2019-12-26 15:53 | NUR ---
cm note call made to [facility] insurance for ambulance approval provided with a temp auth [id number]. and states only preliminary approval until 72hrs to review. updated pt and on t his temporary approval and that he may still get billed for service, pt verbalizes understanding. also faxed clinicals requested to [phone]. EMS forms filled updated primary nurse.to call ems when ready.
--- NOTE | 2019-12-26 16:51 | NUR ---
DISCHARGE INSTRUCTIONS/INFORMATION GIVEN TO PATIENT. TEACH BACK METHOD USED TO EDUCATE PATIENT ON DIET, S/S TO MONITOR, WHEN TO CALL MD, WOUND CARE, USE OF IS, URINARY RETENSION AND BUSTOS CARE, PAIN MANAGEMENT, AND STERNAL PRECAUTIONS. PATIENT VERBALIZED UNDERSTANDING. KEPT LEFT WRIST PIV REQUESTED BY RECEIVING NURSE MARCELLA BRUNO RN. TELE PACK REMOVED AND RETURNED. SUTURES REMOVED ASEPTICALLY FROM PREVIOUS CHEST TUBE SITES. PATIENT TOLERATED REMOVAL. PICTURES OF WOUNDS TAKEN. ALL BELONGINGS WERE PACKED. PATIENT WAS PICKED UP BY EMS.
[2019-12-27] MEDS ORDERED: AMIODARONE HCL 200 MG TABLET PO SCH (09:00)
[2020-01-24] MEDS ORDERED: DEXA6TAB7 PO (13:39)
[2020-01-24] MEDS ORDERED: APIX2.5T PO (13:39)
[2020-01-24] MEDS ORDERED: FURO20TA6 PO (13:49)
[2020-02-04] MEDS ORDERED: AMIO200T6 PO (08:11)
== END 2019-12-26 17:00 | DRG 233 ==
LOC: EDH 23:50 → EDHIP 12-18 01:48 → 4AH 12-18 23:09 → 2BH 12-20 10:27 → 2CV 12-20 18:22 → 2BH 12-21 16:38 → 4CH 12-22 15:33
PROVIDERS: ADMIT Internal Medicine; ATTEND Internal Medicine
PROC: 4A023N7 Measurement of Cardiac Sampling and Pressure, Left Heart, Percutaneous Approach (ICD-10-PCS; principal; 2019-12-19)
PROC: B2111ZZ Fluoroscopy of Multiple Coronary Arteries using Low Osmolar Contrast (ICD-10-PCS; 2019-12-19)
PROC: 5A02210 Assistance with Cardiac Output using Balloon Pump, Continuous (ICD-10-PCS; 2019-12-20)
PROC: 02100Z9 Bypass Coronary Artery, One Artery from Left Internal Mammary, Open Approach (ICD-10-PCS; 2019-12-20 16:46)
PROC: 021309W Bypass Coronary Artery, Four or More Arteries from Aorta with Autologous Venous Tissue, Open Approach (ICD-10-PCS; 2019-12-20 16:46)
PROC: 06BQ4ZZ Excision of Left Saphenous Vein, Percutaneous Endoscopic Approach (ICD-10-PCS; 2019-12-20 16:46)
PROC: 30233R1 Transfusion of Nonautologous Platelets into Peripheral Vein, Percutaneous Approach (ICD-10-PCS; 2019-12-22)
PROC: 5A09357 Assistance with Respiratory Ventilation, Less than 24 Consecutive Hours, Continuous Positive Airway Pressure (ICD-10-PCS; 2019-12-22)
PROC: 5A2204Z Restoration of Cardiac Rhythm, Single (ICD-10-PCS; 2019-12-23)
PROC: 5A09357 Assistance with Respiratory Ventilation, Less than 24 Consecutive Hours, Continuous Positive Airway Pressure (ICD-10-PCS; 2019-12-24)
PROC: 5A09357 Assistance with Respiratory Ventilation, Less than 24 Consecutive Hours, Continuous Positive Airway Pressure (ICD-10-PCS; 2019-12-25)
DX: I21.19 ST elevation (STEMI) myocardial infarction involving other coronary artery of inferior wall (principal); I49.01 Ventricular fibrillation; R57.0 Cardiogenic shock; J95.1 Acute pulmonary insufficiency following thoracic surgery; J95.821 Acute postprocedural respiratory failure; N17.9 Acute kidney failure, unspecified; I47.2 Ventricular tachycardia; I25.110 Atherosclerotic heart disease of native coronary artery with unstable angina pectoris; I11.9 Hypertensive heart disease without heart failure; Z68.34 Body mass index [BMI] 34.0-34.9, adult; E66.9 Obesity, unspecified; E11.42 Type 2 diabetes mellitus with diabetic polyneuropathy; E78.00 Pure hypercholesterolemia, unspecified; D64.9 Anemia, unspecified; D72.829 Elevated white blood cell count, unspecified; E78.5 Hyperlipidemia, unspecified; E87.6 Hypokalemia; E87.70 Fluid overload, unspecified; G47.00 Insomnia, unspecified; I25.5 Ischemic cardiomyopathy; I48.0 Paroxysmal atrial fibrillation; R19.7 Diarrhea, unspecified; E77.8 Other disorders of glycoprotein metabolism; K59.00 Constipation, unspecified; Z79.82 Long term (current) use of aspirin; Z79.899 Other long term (current) drug therapy; Z82.3 Family history of stroke; Z83.3 Family history of diabetes mellitus; Z83.6 Family history of other diseases of the respiratory system; Z82.49 Family history of ischemic heart disease and other diseases of the circulatory system; Y83.2 Surgical operation with anastomosis, bypass or graft as the cause of abnormal reaction of the patient, or of later complication, without mention of misadventure at the time of the procedure; Y71.8 Miscellaneous cardiovascular devices associated with adverse incidents, not elsewhere classified
CPT/HCPCS: 36415; 36600; 71045; 80048; 80053; 80061; 82248; 82330; 82435; 82550; 82803; 82947; 82948; 83036; 83605; 83690; 83735; 83874; 83880; 84100; 84132; 84295; 84443; 84484; 85018; 85025; 85027; 85347; 85610; 85730; 86850; 86900; 86901; 86922; 87324; 93005; 93306; 93356; 93458; 93880; 94002; 94003; 94010; 94150; 97039; 99156; 99157; 99291; A4344; A4357; A7048; C1760; C1894; G0378; J0171; J0282; J0330; J0461; J0610; J0690; J1160; J1644; J1650; J1815; J1940; J2001; J2250; J2405; J2440; J2704; J2720; J3010; J3475; J3480; J3490; J7030; J7040; J7050; J7060; J7120; P9034; P9045; Q9967

== ENCOUNTER 2020-01-22 16:23 | Inpatient (IN) | payer OTHER ==
[~2020-01-22] VITALS: Ht 170.2 cm; Wt 100.7 kg
[2020-01-22] MEDS ORDERED: ASPIRIN 325 MG TABLET ONE (19:14)
[2020-01-22] MEDS ORDERED: FUROSEMIDE 10 MG/ML 2ML VIAL ONE (19:14)
[2020-01-22] MEDS ORDERED: FUROSEMIDE 10 MG/ML 4ML VIAL ONE (19:14)
[2020-01-22] MEDS ORDERED: DEXTROSE 50%-WATER 50 ML DISP.SYRIN IV PRN (20:15)
[2020-01-22] MEDS ORDERED: GLUCAGON 1MG KIT 1 MG ML IM PRN (20:15)
[2020-01-22] MEDS ORDERED: AZITHROMYCIN 500MG+NS 250ML 250 ML IV SCH (20:30)
[2020-01-22] MEDS ORDERED: ALBUTEROL INHALER 90MCG/INH IH PRN (20:30)
[2020-01-22] MEDS ORDERED: NITROGLYCERIN 0.4 MG SL TAB SL PRN (20:30)
[2020-01-22] MEDS ORDERED: ACETAMINOPHEN 325 MG TAB PO PRN ×2 (20:30)
[2020-01-22] MEDS ORDERED: DIPHENHYDRAMINE HCL 25 MG CAPSULE PO PRN (20:30)
[2020-01-22] MEDS ORDERED: FAMOTIDINE 20MG TAB 20 MG TAB PO SCH (21:00)
[2020-01-22] MEDS ORDERED: INSULIN HUMULIN R 100 UNIT/ML 3ML SQ SCH (21:00)
[2020-01-22] MEDS ORDERED: FUROSEMIDE 10 MG/ML 4ML VIAL IV SCH (22:00)
[2020-01-23] MEDS ORDERED: FAMOTIDINE 20MG TAB 20 MG TAB ONE (00:41)
[2020-01-23] MEDS ORDERED: AZITHROMYCIN 500MG+NS 250ML 250 ML IV ONE (00:41)
[2020-01-23] MEDS ORDERED: IOHEXOL 350 MG/ML 100ML INFUS..BTL IV ONE (01:35)
[2020-01-23] MEDS ORDERED: MAGNESIUM 2GM PREMIX 50ML 50 ML IV SCH (02:30)
[2020-01-23] MEDS ORDERED: MAGNESIUM 2GM PREMIX 50ML 50 ML IV ONE (05:48)
[2020-01-23] MEDS ORDERED: ENOXAPARIN SODIUM 100 MG/1 ML SQ ONE ×2 (08:06→21:51)
[2020-01-23] MEDS ORDERED: FAMOTIDINE/PF 20 MG/2 ML VIAL IV ONE ×2 (08:06→21:51)
[2020-01-23] MEDS ORDERED: FUROSEMIDE 10 MG/ML 4ML VIAL ONE ×2 (08:06→21:51)
[2020-01-23] MEDS ORDERED: ENOXAPARIN SODIUM 100 MG/1 ML SQ SCH (09:00)
[2020-01-23] MEDS ORDERED: ENOXAPARIN SODIUM 40 MG/0.4 ML SYRINGE SQ SCH (09:00)
--- NOTE | 2020-01-23 13:46 | NUR ---
DCP CM spoke to pt's spouse Derrick Pederson, discussed dc plans. Pt is independent prior to admission, lives at home with spouse. Denies any equipments/services. Feels safe to go back home, still drives and work, spouse able to assist with transportation and needs as necessary. DC plan to home once stable. CM to cont to follow up. Addendum: 01/23/20 at 1347 by DAVID GENAO LVN CM Amended: Links added.
[2020-01-24] MEDS ORDERED: FUROSEMIDE 10 MG/ML 4ML VIAL ONE (11:10)
[2020-01-24] MEDS ORDERED: FAMOTIDINE/PF 20 MG/2 ML VIAL IV ONE (11:11)
[2020-01-24] MEDS ORDERED: ENOXAPARIN SODIUM 60 MG/0.6 ML SQ SCH (11:30)
[2020-01-24] MEDS ORDERED: ENOXAPARIN SODIUM 100 MG/1 ML SQ SCH (11:30)
[2020-01-24] MEDS ORDERED: ENOXAPARIN SODIUM 40 MG/0.4 ML SYRINGE SQ SCH (11:30)
[2020-01-24] MEDS ORDERED: ENOXAPARIN SODIUM 60 MG/0.6 ML SQ ONE (11:49)
[2020-01-24] MEDS ORDERED: ENOXAPARIN SODIUM 40 MG/0.4 ML SYRINGE SQ ONE (11:49)
[2020-01-24 11:55] VITALS: PULSE 72; PULSE 78; RESP 18
== END 2020-01-25 17:05 | disposition home or self-care (01) | DRG 291 ==
LOC: EDH 16:23 → EDHIP 19:26
PROVIDERS: ADMIT Family Medicine; ATTEND Family Medicine
DX: I11.0 Hypertensive heart disease with heart failure (principal); J12.9 Viral pneumonia, unspecified; N17.9 Acute kidney failure, unspecified; I50.33 Acute on chronic diastolic (congestive) heart failure; I25.5 Ischemic cardiomyopathy; I48.0 Paroxysmal atrial fibrillation; E11.42 Type 2 diabetes mellitus with diabetic polyneuropathy; I25.10 Atherosclerotic heart disease of native coronary artery without angina pectoris; G47.33 Obstructive sleep apnea (adult) (pediatric); Z20.828 Contact with and (suspected) exposure to other viral communicable diseases; Z95.1 Presence of aortocoronary bypass graft; Z83.3 Family history of diabetes mellitus; Z82.3 Family history of stroke; Z83.6 Family history of other diseases of the respiratory system; Z82.49 Family history of ischemic heart disease and other diseases of the circulatory system

== ENCOUNTER 2020-02-01 12:19 | Inpatient (IN) | payer OTHER ==
[~2020-02-01] VITALS: Ht 170.2 cm; Wt 100.7 kg
[~2020-02-01 12:19] MED LIST changes: +APIX2.5T PO; +DEXA6TAB7 PO; +FURO20TA6 PO; +PANT40TA25 PO; -PANT40TA54 PO
[2020-02-01 13:09] LABS: BASOPHILS % (AUTO) 0.1 % (0.0-5.0); HEMATOCRIT 35.7 % (42-54); LYMPHOCYTES % (AUTO) 2.1 % (21.0-51.0); MEAN CORPUSCULAR HEMOGLOBIN 26.7 pg (27.0-33.0); MEAN CORPUSCULAR HGB CONC 32.8 g/dL (32.0-36.0); MEAN CORPUSCULAR VOLUME 81.5 fL (79-99); MONOCYTES % (AUTO) 3.3 % (3.0-13.0); PLATELET COUNT (AUTO) 280 K/uL (130-400); RED BLOOD CELL COUNT(AUTO) 4.38 MIL/uL (4.50-6.20); RED CELL DISTRIBUTION WIDTH 13.5 % (11.0-15.5); WHITE BLOOD COUNT (AUTO) 10.6 K/uL (4.8-10.8)
[2020-02-01] MEDS ORDERED: FUROSEMIDE 10 MG/ML 4ML VIAL ONE (13:11)
[2020-02-01] MEDS ORDERED: FUROSEMIDE 10 MG/ML 2ML VIAL ONE (13:11)
[2020-02-01] MEDS ORDERED: ACETAMINOPHEN 325 MG TAB ONE (13:12)
[2020-02-01] MEDS ORDERED: ZOSYN 3.375GM+NS 50ML 50 ML IV ONE (13:12)
[2020-02-01 13:17] LABS: ABG BASE EXCESS 0.6 mmol/L (-2.0-3.0); ABG OXYGEN SATURATION 96.3 % (95.0-99.0); ABG PCO2 35 mmHg (35-48)
[2020-02-01 13:22] LABS: INR 1.06 (0.85-1.15); PARTIAL THROMBOPLASTIN TIME 32.4 SEC (26.3-35.5); PROTHROMBIN TIME 11.4 SEC (9.6-11.6)
[2020-02-01 13:49] LABS: POTASSIUM 3.2 mmol/L (3.5-5.1)
[2020-02-01 14:08] LABS: ALBUMIN 3.2 g/dL (3.5-5.0); BILIRUBIN,TOTAL 0.7 mg/dL (0.2-1.0); TROPONIN I 0.16 ng/mL (0.00-0.06)
[2020-02-01 15:55] LABS: APPEARANCE,URINE Clear (CLEAR); BILIRUBIN,URINE Negative (NEGATIVE); COLOR,URINE Yellow (YELLOW); GLUCOSE, URINE (UA) Negative (NEGATIVE); KETONES,URINE Negative (NEGATIVE); LEUKOCYTE ESTERASE ,URINE Negative (NEGATIVE); NITRATE,URINE Negative (NEGATIVE); OCCULT BLOOD,URINE Negative (NEGATIVE); PROTEIN,URINE Negative (NEGATIVE)
[2020-02-01] MEDS ORDERED: LIDOCAINE HCL-MPF 1% 2ML VIAL IV PRN (21:15)
[2020-02-01] MEDS ORDERED: POTASSIUM CHLORIDE 20MEQ/100ML 100 ML IV PRN (21:15)
[2020-02-01] MEDS ORDERED: POTASSIUM CHLORIDE 10% ELIXIR 20 MEQ/15 ML UDCUP PO PRN (21:15)
[2020-02-02] MEDS ORDERED: ENOXAPARIN SODIUM 40 MG/0.4 ML SYRINGE SQ ONE ×2 (10:53→20:10)
[2020-02-02] MEDS ORDERED: FAMOTIDINE 20MG TAB 20 MG TAB ONE (10:53)
[2020-02-02] MEDS ORDERED: MAG HYDROX/AL HYDROX/SIMETH ES 30 ML SUSP UDCUP PO PRN (11:00)
[2020-02-02] MEDS ORDERED: ENOXAPARIN SODIUM 40 MG/0.4 ML SYRINGE SQ SCH (11:00)
[2020-02-02] MEDS ORDERED: NITROGLYCERIN 0.4 MG SL TAB SL PRN (11:00)
[2020-02-02] MEDS ORDERED: SODIUM CHLORIDE 0.9% 10 ML VIAL IVP SCH (11:00)
[2020-02-02] MEDS ORDERED: AMIODARONE HCL 200 MG TABLET PO SCH (14:00)
[2020-02-02] MEDS ORDERED: FUROSEMIDE 10 MG/ML 2ML VIAL IV SCH (14:00)
[2020-02-02] MEDS: ASPIRIN 81MG TAB.CHEW PO SCH (14:00)
[2020-02-02] MEDS ORDERED: ASPIRIN 81MG TAB.CHEW ONE (15:11)
[2020-02-02] MEDS ORDERED: FUROSEMIDE 10 MG/ML 2ML VIAL ONE (15:11)
[2020-02-02] MEDS ORDERED: AMIODARONE HCL 200 MG TABLET PO ONE (15:11)
[2020-02-02] MEDS ORDERED: METOPROLOL TARTRATE 25 MG TAB ONE (15:12)
[2020-02-02 16:10] LABS: CREATININE 1.1 mg/dL (0.5-1.5); POTASSIUM 3.3 mmol/L (3.5-5.1)
[2020-02-02 16:14] LABS: CRP QUANTITATIVE 178.6 mg/L (0.00-9.0)
[2020-02-02] MEDS ORDERED: ATORVASTATIN CALCIUM 40 MG TABLET ONE (20:10)
[2020-02-02] MEDS ORDERED: FAMOTIDINE/PF 20 MG/2 ML VIAL IV ONE (20:11)
[2020-02-02] MEDS ORDERED: ACETAMINOPHEN 325 MG TAB ONE (20:38)
[2020-02-02] MEDS: METOPROLOL TARTRATE 25 MG TAB PO SCH (21:00)
[2020-02-02] MEDS: FAMOTIDINE 20MG TAB 20 MG TAB PO SCH (21:00)
[2020-02-02] MEDS: ATORVASTATIN CALCIUM 40 MG TABLET PO SCH (21:00)
[2020-02-02] MEDS: POTASSIUM CHLORIDE 10 MEQ/TAB.SA PO SCH (21:00)
[2020-02-03] MEDS ORDERED: POTASSIUM CHLORIDE 20 MEQ ERTAB PO ONE (04:17)
[2020-02-03] MEDS ORDERED: FUROSEMIDE 10 MG/ML 2ML VIAL ONE ×2 (04:17→15:39)
[2020-02-03] MEDS ORDERED: METOPROLOL TARTRATE 25 MG TAB ONE ×2 (04:18→15:39)
[2020-02-03 05:37] LABS: BASOPHILS % (AUTO) 0.2 % (0.0-5.0); EOSINOPHILS % (AUTO) 2.4 % (0.0-8.0); HEMATOCRIT 39.7 % (42-54); LYMPHOCYTES % (AUTO) 7.5 % (21.0-51.0); MEAN CORPUSCULAR HEMOGLOBIN 26.5 pg (27.0-33.0); MEAN CORPUSCULAR HGB CONC 32.5 g/dL (32.0-36.0); MEAN CORPUSCULAR VOLUME 81.5 fL (79-99); MONOCYTES % (AUTO) 5.5 % (3.0-13.0); NEUTROPHILS % (AUTO) 84.2 % (40.0-77.0); PLATELET COUNT (AUTO) 291 K/uL (130-400); RED BLOOD CELL COUNT(AUTO) 4.87 MIL/uL (4.50-6.20); RED CELL DISTRIBUTION WIDTH 13.4 % (11.0-15.5)
[2020-02-03 05:46] LABS: CREATININE 1.1 mg/dL (0.5-1.5); POTASSIUM 3.2 mmol/L (3.5-5.1)
[2020-02-03] MEDS ORDERED: DiphenhydrAMINE HCL 25 MG/10 ML ELIXIR UDCUP ONE (06:27)
[2020-02-03] MEDS: METOPROLOL TARTRATE 25 MG TAB PO SCH ×2 (09:00→21:00)
[2020-02-03] MEDS: POTASSIUM CHLORIDE 10 MEQ/TAB.SA PO SCH ×2 (09:00→21:00)
[2020-02-03] MEDS: FAMOTIDINE 20MG TAB 20 MG TAB PO SCH ×2 (09:00→21:00)
[2020-02-03] MEDS: ASPIRIN 81MG TAB.CHEW PO SCH (09:00)
[2020-02-03] MEDS ORDERED: POTASSIUM CHLORIDE 10% ELIXIR 20 MEQ/15 ML UDCUP ONE ×2 (09:25→15:38)
--- NOTE | 2020-02-03 09:30 | NUR ---
CALL TO HOME, NO ANSWER
[2020-02-03] MEDS: CLOPIDOGREL BISULFATE 75 MG TAB PO SCH (09:45)
[2020-02-03] MEDS ORDERED: ACETAMINOPHEN 325 MG TAB ONE ×2 (13:17→22:34)
[2020-02-03] MEDS ORDERED: ERGOCALCIFEROL (VITAMIN D2) 50,000 UNIT CAPSULE PO ONE (14:15)
[2020-02-03] MEDS ORDERED: AMIODARONE HCL 200 MG TABLET PO ONE (15:39)
[2020-02-03] MEDS ORDERED: ASPIRIN 81MG TAB.CHEW ONE (15:39)
[2020-02-03] MEDS ORDERED: ATORVASTATIN CALCIUM 40 MG TABLET ONE (20:11)
[2020-02-03] MEDS ORDERED: ENOXAPARIN SODIUM 40 MG/0.4 ML SYRINGE SQ ONE (20:11)
[2020-02-03] MEDS ORDERED: FAMOTIDINE 20MG TAB 20 MG TAB ONE (20:11)
[2020-02-03] MEDS ORDERED: METHYLPREDNISOLONE SOD SUCC 40MG/ML 1ML IVP SCH (21:00)
[2020-02-03] MEDS: ATORVASTATIN CALCIUM 40 MG TABLET PO SCH (21:00)
[2020-02-03 23:30] VITALS: BP 147/77
--- NOTE | 2020-02-03 23:53 | NUR ---
MD Notification The patient has just arrived to the floor. As I am doing my assessment, I noticed that the patient has a RR of 34, HR 124, and he is using the tri-pod position to breathe. He is on a non-rebreather @ 15 lpm. Resp. has been notified & the MD overnight (JULIO C). STAT ABGs have been drawn & a BNP to determine if the lasix he has ordered should be given earlier.
[2020-02-03 23:59] LABS: ABG BASE EXCESS -4.3 mmol/L (-2.0-3.0); ABG HCO3 19.4 mmol/L (21.0-28.0); ABG OXYGEN SATURATION 98.6 % (95.0-99.0); ABG PCO2 32 mmHg (35-48)
[2020-02-04] MEDS: FUROSEMIDE 10 MG/ML 2ML VIAL IV SCH ×2 (02:19→13:27)
[2020-02-04 03:33] VITALS: BP 110/67
[2020-02-04 08:00] VITALS: BP 126/72
[2020-02-04] MEDS ORDERED: BENZ-39 PO (08:11)
[2020-02-04] MEDS ORDERED: GABA-529 PO (08:11)
[2020-02-04] MEDS ORDERED: DOCU100C33 PO (08:11)
[2020-02-04] MEDS ORDERED: ATOR-2 PO (08:11)
[2020-02-04] MEDS ORDERED: METF-444 PO (08:11)
[2020-02-04] MEDS ORDERED: METO25TA6 PO (08:11)
[2020-02-04] MEDS ORDERED: GLYB5TAB8 PO (08:11)
[2020-02-04] MEDS ORDERED: ASPI-556 PO (08:11)
[2020-02-04] MEDS ORDERED: AMIO200T5 PO (08:11)
[2020-02-04] MEDS: METHYLPREDNISOLONE SOD SUCC 40MG/ML 1ML IVP SCH ×3 (09:21→21:05)
[2020-02-04] MEDS: FAMOTIDINE 20MG TAB 20 MG TAB PO SCH ×2 (09:21→21:05)
[2020-02-04] MEDS: ZINC SULFATE 220 CAPSULE PO SCH (09:25)
[2020-02-04] MEDS: ASCORBIC ACID 500 MG TAB PO SCH (09:25)
[2020-02-04] MEDS: ASPIRIN 81MG TAB.CHEW PO SCH (09:25)
[2020-02-04] MEDS: CLOPIDOGREL BISULFATE 75 MG TAB PO SCH (09:25)
[2020-02-04] MEDS: POTASSIUM CHLORIDE 10 MEQ/TAB.SA PO SCH ×2 (09:25→21:06)
[2020-02-04] MEDS: METOPROLOL TARTRATE 25 MG TAB PO SCH ×2 (09:26→21:06)
[2020-02-04] MEDS: ENOXAPARIN SODIUM 40 MG/0.4 ML SYRINGE SQ SCH ×2 (09:27→21:07)
[2020-02-04] MEDS: POTASSIUM CHLORIDE 20 MEQ ERTAB PO PRN ×3 (09:28→13:27)
--- NOTE | 2020-02-04 11:58 | NUR ---
CM NOTE/IA UNSUCCESSFUL UNABLE TO MEET PATIENT FACE TO FACE D/T IN RESTRICTIVE PART OF HOSPITAL. CALLED ROOM PHONE AND PATIENTS CELL, NO ANSWER. CM TO FOLLOW UP WITH IA INTERVIEW. Addendum: 02/05/20 at 1232 by ERUM LÓPEZ RN CM Amended: Links added.
[2020-02-04 13:27] VITALS: BP 137/72
[2020-02-04] MEDS ORDERED: GLUCAGON 1MG KIT 1 MG ML IM PRN (14:00)
[2020-02-04] MEDS ORDERED: DEXTROSE 50%-WATER 50 ML DISP.SYRIN IV PRN (14:00)
[2020-02-04] MEDS ORDERED: INSULIN HUMULIN R 100 UNIT/ML 3ML SQ SCH ×2 (14:00→16:30)
[2020-02-04] MEDS: INSULIN HUMULIN R 100 UNIT/ML 3ML SQ SCH ×2 (15:45→21:08)
[2020-02-04 16:00] VITALS: BP 117/72
[2020-02-04] MEDS ORDERED: PHARMACY COMMUNICATION MISC SCH ×2 (19:00→19:30)
[2020-02-04] MEDS ORDERED: REMDESIVIR (INVESTIGATIONAL) 200 MG in SODIUM CHLORIDE 0.9% 250 ML IV SCH (20:00)
[2020-02-04] MEDS ORDERED: REMDESIVIR (INVESTIGATIONAL) 100 MG in SODIUM CHLORIDE 0.9% 250 ML IV SCH (20:00)
[2020-02-04 20:24] VITALS: BP 121/80
[2020-02-04] MEDS: ATORVASTATIN CALCIUM 40 MG TABLET PO SCH (21:06)
[2020-02-04 23:51] LABS: ABG BASE EXCESS -1.9 mmol/L (-2.0-3.0); ABG HCO3 23.7 mmol/L (21.0-28.0); ABG OXYGEN SATURATION 96.8 % (95.0-99.0); ABG PCO2 44 mmHg (35-48)
[2020-02-05] MEDS: FUROSEMIDE 10 MG/ML 2ML VIAL IV SCH ×4 (00:03→22:46)
[2020-02-05 00:24] VITALS: BP 104/68
[2020-02-05 04:24] VITALS: BP 117/63
[2020-02-05 05:58] LABS: BASOPHILS % (AUTO) 0.1 % (0.0-5.0); EOSINOPHILS % (AUTO) 0.2 % (0.0-8.0); HEMATOCRIT 38.5 % (42-54); LYMPHOCYTES % (AUTO) 2.1 % (21.0-51.0); MEAN CORPUSCULAR HEMOGLOBIN 26.3 pg (27.0-33.0); MEAN CORPUSCULAR HGB CONC 32.2 g/dL (32.0-36.0); MEAN CORPUSCULAR VOLUME 81.7 fL (79-99); MONOCYTES % (AUTO) 2.8 % (3.0-13.0); NEUTROPHILS % (AUTO) 93.8 % (40.0-77.0); PLATELET COUNT (AUTO) 235 K/uL (130-400); RED BLOOD CELL COUNT(AUTO) 4.71 MIL/uL (4.50-6.20); RED CELL DISTRIBUTION WIDTH 13.3 % (11.0-15.5); WHITE BLOOD COUNT (AUTO) 13.7 K/uL (4.8-10.8)
[2020-02-05] MEDS: INSULIN HUMULIN R 100 UNIT/ML 3ML SQ SCH ×4 (05:59→21:13)
[2020-02-05 07:08] LABS: ALBUMIN 2.7 g/dL (3.5-5.0); BILIRUBIN,TOTAL 0.9 mg/dL (0.2-1.0); CREATININE 1.3 mg/dL (0.5-1.5); POTASSIUM 4.2 mmol/L (3.5-5.1); TOTAL PROTEIN, SERUM 8.2 g/dL (6.0-8.3)
[2020-02-05 07:18] LABS: CRP QUANTITATIVE 340.6 mg/L (0.00-9.0)
[2020-02-05 08:00] VITALS: BP 125/69
[2020-02-05] MEDS: ENOXAPARIN SODIUM 40 MG/0.4 ML SYRINGE SQ SCH ×2 (09:59→21:00)
[2020-02-05] MEDS: ASPIRIN 81MG TAB.CHEW PO SCH (10:00)
[2020-02-05] MEDS: ZINC SULFATE 220 CAPSULE PO SCH (10:01)
[2020-02-05] MEDS: ASCORBIC ACID 500 MG TAB PO SCH (10:02)
[2020-02-05] MEDS: METOPROLOL TARTRATE 25 MG TAB PO SCH ×2 (10:02→20:59)
[2020-02-05] MEDS: METHYLPREDNISOLONE SOD SUCC 40MG/ML 1ML IVP SCH ×2 (10:03→14:08)
[2020-02-05] MEDS: FAMOTIDINE 20MG TAB 20 MG TAB PO SCH ×2 (10:03→20:59)
[2020-02-05] MEDS: CLOPIDOGREL BISULFATE 75 MG TAB PO SCH (10:03)
[2020-02-05] MEDS: POTASSIUM CHLORIDE 10 MEQ/TAB.SA PO SCH ×2 (10:04→20:59)
--- NOTE | 2020-02-05 12:32 | NUR ---
LISA NOTE/IA UNSUCCESSFUL UNABLE TO MEET WITH PATIENT IN ROOM D/T ON COVID UNIT. CALLED SPOUSE, KALANI HAMILTON [phone], NO ANSWER, VM LEFT. LISA TO FOLLOW UP FOR IA INTERVIEW. Addendum: 02/05/20 at 1235 by ERUM LÓPEZ RN CM Amended: Links added.
[2020-02-05 13:09] VITALS: BP 115/55
[2020-02-05] MEDS ORDERED: COMPOUND IV REFRIGERATED 1 EACH IVSOLN MISC PRN (14:15)
[2020-02-05 18:46] VITALS: BP 124/65
[2020-02-05 20:00] VITALS: BP 118/66
[2020-02-05] MEDS: REMDESIVIR (INVESTIGATIONAL) 100 MG in SODIUM CHLORIDE 0.9% 250 ML IV SCH (20:59)
[2020-02-05] MEDS: ATORVASTATIN CALCIUM 40 MG TABLET PO SCH (20:59)
[2020-02-05] MEDS: METHYLPREDNISOLONE SOD SUCC 125MG/2ML VIAL IVP SCH (20:59)
[2020-02-06] VITALS: BP 137/81
[2020-02-06] MEDS: FUROSEMIDE 10 MG/ML 2ML VIAL IV SCH ×3 (02:27→23:36)
[2020-02-06 04:00] VITALS: BP 118/54
[2020-02-06 04:24] LABS: ABG BASE EXCESS 0.4 mmol/L (-2.0-3.0); ABG HCO3 28.2 mmol/L (21.0-28.0); ABG OXYGEN SATURATION 99.6 % (95.0-99.0); ABG PCO2 59 mmHg (35-48)
[2020-02-06] MEDS: INSULIN HUMULIN R 100 UNIT/ML 3ML SQ SCH ×4 (05:59→20:46)
--- NOTE | 2020-02-06 06:37 | NUR ---
Patient Education Patient has been educated numerous times throughout the night the importance of keeping his BiPap on. However, he still chooses to be non-compliant and remove the mask. I will continue to do my best to monitor him closely to the best of my ability.
[2020-02-06 06:47] LABS: BASOPHILS % (AUTO) 0.1 % (0.0-5.0); HEMATOCRIT 36.3 % (42-54); LYMPHOCYTES % (AUTO) 1.5 % (21.0-51.0); MEAN CORPUSCULAR HEMOGLOBIN 25.5 pg (27.0-33.0); MEAN CORPUSCULAR HGB CONC 31.1 g/dL (32.0-36.0); MEAN CORPUSCULAR VOLUME 81.8 fL (79-99); MONOCYTES % (AUTO) 2.9 % (3.0-13.0); NEUTROPHILS % (AUTO) 94.8 % (40.0-77.0); PLATELET COUNT (AUTO) 283 K/uL (130-400); RED BLOOD CELL COUNT(AUTO) 4.44 MIL/uL (4.50-6.20); RED CELL DISTRIBUTION WIDTH 13.6 % (11.0-15.5); WHITE BLOOD COUNT (AUTO) 17.2 K/uL (4.8-10.8)
[2020-02-06 07:25] LABS: ALBUMIN 2.5 g/dL (3.5-5.0); BILIRUBIN,TOTAL 0.8 mg/dL (0.2-1.0); CREATININE 1.2 mg/dL (0.5-1.5); POTASSIUM 4.7 mmol/L (3.5-5.1); TOTAL PROTEIN, SERUM 7.7 g/dL (6.0-8.3)
--- NOTE | 2020-02-06 08:45 | NUR ---
Fanny RANDLE NP SPOKE TO Fanny RANDLE NP FOR [facility] REGARDING CONSULT. ERVIN RANDLE NP TOLD ME THAT CARDIOLOGY IS SIGNING OFF OF CASE AND IF ANY ISSUES ARISE TO RECONSULT CARDIOLOGY.
[2020-02-06] MEDS: FAMOTIDINE 20MG TAB 20 MG TAB PO SCH ×2 (09:00→20:46)
[2020-02-06 09:44] LABS: CRP QUANTITATIVE 318.9 mg/L (0.00-9.0)
[2020-02-06] MEDS: POTASSIUM CHLORIDE 10 MEQ/TAB.SA PO SCH ×2 (09:50→20:43)
[2020-02-06] MEDS: ASPIRIN 81MG TAB.CHEW PO SCH (09:50)
[2020-02-06] MEDS: ASCORBIC ACID 500 MG TAB PO SCH (09:50)
[2020-02-06] MEDS: METHYLPREDNISOLONE SOD SUCC 125MG/2ML VIAL IVP SCH ×2 (09:50→14:06)
[2020-02-06] MEDS: METOPROLOL TARTRATE 25 MG TAB PO SCH ×2 (09:51→20:43)
[2020-02-06] MEDS: ZINC SULFATE 220 CAPSULE PO SCH (09:51)
[2020-02-06] MEDS: CLOPIDOGREL BISULFATE 75 MG TAB PO SCH (09:51)
[2020-02-06] MEDS: ENOXAPARIN SODIUM 40 MG/0.4 ML SYRINGE SQ SCH (09:52)
[2020-02-06 10:12] VITALS: BP 123/70
[2020-02-06 12:00] VITALS: BP 120/77
[2020-02-06 19:09] VITALS: BP 123/72
[2020-02-06] MEDS ORDERED: METHYLPREDNISOLONE SOD SUCC 40MG/ML 1ML ONE (19:25)
[2020-02-06] MEDS ORDERED: LISINOPRIL 5 MG TABLET ONE (19:25)
[2020-02-06 20:00] VITALS: BP 128/80
[2020-02-06] MEDS: METHYLPREDNISOLONE SOD SUCC 40MG/ML 1ML IVP SCH (20:42)
[2020-02-06] MEDS: ATORVASTATIN CALCIUM 40 MG TABLET PO SCH (20:42)
[2020-02-06] MEDS: REMDESIVIR (INVESTIGATIONAL) 100 MG in SODIUM CHLORIDE 0.9% 250 ML IV SCH (20:42)
[2020-02-06] MEDS: LISINOPRIL 5 MG TABLET PO SCH (20:43)
[2020-02-06] MEDS: ENOXAPARIN SODIUM 100 MG/1 ML SQ SCH (20:44)
[2020-02-06] MEDS ORDERED: ENOXAPARIN SODIUM 1 MG/KG SQ SCH (21:00)
[2020-02-07] VITALS (7 sets, daily range): BP systolic 90–137; BP diastolic 57–73
[2020-02-07] MEDS: FUROSEMIDE 10 MG/ML 2ML VIAL IV SCH ×2 (01:48→15:14)
[2020-02-07] MEDS: INSULIN HUMULIN R 100 UNIT/ML 3ML SQ SCH ×4 (05:46→20:57)
[2020-02-07 06:27] LABS: BASOPHILS % (AUTO) 0.1 % (0.0-5.0); HEMATOCRIT 36.3 % (42-54); LYMPHOCYTES % (AUTO) 2.1 % (21.0-51.0); MEAN CORPUSCULAR HEMOGLOBIN 25.4 pg (27.0-33.0); MEAN CORPUSCULAR HGB CONC 30.6 g/dL (32.0-36.0); MEAN CORPUSCULAR VOLUME 83.1 fL (79-99); MONOCYTES % (AUTO) 3.1 % (3.0-13.0); NEUTROPHILS % (AUTO) 93.3 % (40.0-77.0); PLATELET COUNT (AUTO) 305 K/uL (130-400); RED BLOOD CELL COUNT(AUTO) 4.37 MIL/uL (4.50-6.20); RED CELL DISTRIBUTION WIDTH 13.9 % (11.0-15.5); WHITE BLOOD COUNT (AUTO) 15.1 K/uL (4.8-10.8)
[2020-02-07 06:59] LABS: ALBUMIN 2.5 g/dL (3.5-5.0); BILIRUBIN,DIRECT 0.3 mg/dL (0.0-0.3); BILIRUBIN,TOTAL 0.7 mg/dL (0.2-1.0); CREATININE 1.3 mg/dL (0.5-1.5); POTASSIUM 4.6 mmol/L (3.5-5.1); TOTAL PROTEIN, SERUM 7.7 g/dL (6.0-8.3)
[2020-02-07 07:12] LABS: CRP QUANTITATIVE 253.5 mg/L (0.00-9.0)
[2020-02-07] MEDS: AZITHROMYCIN 500MG+NS 250ML 250 ML IV SCH ×2 (08:00→15:00)
[2020-02-07] MEDS: FAMOTIDINE 20MG TAB 20 MG TAB PO SCH ×2 (09:00→20:58)
[2020-02-07] MEDS: ASCORBIC ACID 500 MG TAB PO SCH (09:53)
[2020-02-07] MEDS: METOPROLOL TARTRATE 25 MG TAB PO SCH ×2 (09:53→20:56)
[2020-02-07] MEDS: ASPIRIN 81MG TAB.CHEW PO SCH (09:53)
[2020-02-07] MEDS: METHYLPREDNISOLONE SOD SUCC 40MG/ML 1ML IVP SCH ×2 (09:53→20:56)
[2020-02-07] MEDS: ZINC SULFATE 220 CAPSULE PO SCH (09:53)
[2020-02-07] MEDS: CLOPIDOGREL BISULFATE 75 MG TAB PO SCH (09:53)
[2020-02-07] MEDS: POTASSIUM CHLORIDE 10 MEQ/TAB.SA PO SCH ×2 (09:55→20:56)
[2020-02-07] MEDS: ENOXAPARIN SODIUM 100 MG/1 ML SQ SCH ×2 (09:55→20:55)
[2020-02-07] MEDS ORDERED: LORAZEPAM 2 MG/ML 1 ML VIAL IM PRN (14:45)
[2020-02-07] MEDS: ATORVASTATIN CALCIUM 40 MG TABLET PO SCH (20:55)
[2020-02-07] MEDS: LISINOPRIL 5 MG TABLET PO SCH (20:56)
[2020-02-07] MEDS: REMDESIVIR (INVESTIGATIONAL) 100 MG in SODIUM CHLORIDE 0.9% 250 ML IV SCH (21:00)
[2020-02-08] VITALS (7 sets, daily range): BP systolic 114–132; BP diastolic 56–74
[2020-02-08] MEDS: FUROSEMIDE 10 MG/ML 2ML VIAL IV SCH ×2 (03:16→14:31)
[2020-02-08 05:34] LABS: BASOPHILS % (AUTO) 0.1 % (0.0-5.0); HEMATOCRIT 35.6 % (42-54); LYMPHOCYTES % (AUTO) 1.7 % (21.0-51.0); MEAN CORPUSCULAR HEMOGLOBIN 25.8 pg (27.0-33.0); MEAN CORPUSCULAR HGB CONC 30.9 g/dL (32.0-36.0); MEAN CORPUSCULAR VOLUME 83.6 fL (79-99); MONOCYTES % (AUTO) 3.4 % (3.0-13.0); NEUTROPHILS % (AUTO) 94.1 % (40.0-77.0); PLATELET COUNT (AUTO) 267 K/uL (130-400); RED BLOOD CELL COUNT(AUTO) 4.26 MIL/uL (4.50-6.20); RED CELL DISTRIBUTION WIDTH 14.1 % (11.0-15.5); WHITE BLOOD COUNT (AUTO) 17.5 K/uL (4.8-10.8)
[2020-02-08] MEDS: INSULIN HUMULIN R 100 UNIT/ML 3ML SQ SCH ×4 (05:47→21:20)
[2020-02-08 05:49] LABS: ALBUMIN 2.5 g/dL (3.5-5.0); BILIRUBIN,TOTAL 0.7 mg/dL (0.2-1.0); CREATININE 1.2 mg/dL (0.5-1.5); CRP QUANTITATIVE 146.3 mg/L (0.00-9.0); POTASSIUM 4.7 mmol/L (3.5-5.1); TOTAL PROTEIN, SERUM 7.7 g/dL (6.0-8.3)
[2020-02-08] MEDS: ASCORBIC ACID 500 MG TAB PO SCH (09:00)
[2020-02-08] MEDS: AZITHROMYCIN 500MG+NS 250ML 250 ML IV SCH (10:52)
[2020-02-08] MEDS: METHYLPREDNISOLONE SOD SUCC 40MG/ML 1ML IVP SCH ×2 (10:52→19:54)
[2020-02-08] MEDS: ENOXAPARIN SODIUM 100 MG/1 ML SQ SCH ×2 (10:52→19:55)
[2020-02-08] MEDS: ASPIRIN 81MG TAB.CHEW PO SCH (10:53)
[2020-02-08] MEDS: ZINC SULFATE 220 CAPSULE PO SCH (10:53)
[2020-02-08] MEDS: POTASSIUM CHLORIDE 10 MEQ/TAB.SA PO SCH ×2 (10:53→19:54)
[2020-02-08] MEDS: CLOPIDOGREL BISULFATE 75 MG TAB PO SCH (10:53)
[2020-02-08] MEDS: METOPROLOL TARTRATE 25 MG TAB PO SCH ×2 (10:54→19:54)
[2020-02-08] MEDS: BENZONATATE 100 MG CAPSULE PO PRN (14:31)
[2020-02-08 17:23] LABS: ABG BASE EXCESS 0.2 mmol/L (-2.0-3.0); ABG HCO3 28.2 mmol/L (21.0-28.0); ABG OXYGEN SATURATION 98.4 % (95.0-99.0); ABG PCO2 60 mmHg (35-48)
--- NOTE | 2020-02-08 18:18 | NUR ---
cm note unable to obtain phone for IA, will continue to f/u. pt on NRM.
[2020-02-08] MEDS: CEFTRIAXONE SODIUM 1 GM IVP SCH (19:54)
[2020-02-08] MEDS: ATORVASTATIN CALCIUM 40 MG TABLET PO SCH (19:54)
[2020-02-08] MEDS: REMDESIVIR (INVESTIGATIONAL) 100 MG in SODIUM CHLORIDE 0.9% 250 ML IV SCH (19:54)
[2020-02-08] MEDS: GUAIFENESIN 600 MG TABLET.ER PO SCH (19:54)
[2020-02-08] MEDS: LISINOPRIL 5 MG TABLET PO SCH (19:56)
--- NOTE | 2020-02-08 23:00 | NUR ---
RECIEVED PT FROM SWAPNIL JUÁREZ FROM FLOOR; PT IN TRIPOD POSITION ON NONREBREATHER, RT CALLED AND PT TRANSFERRED TO BIPAP 70%; NOTED ACCESSORY MUSCLE RESP USE AND TACHYPNEA; OTHERWISE VSS; 02 SATS >88%; CHG BATH GIVEN AND CALL BLACK WITHIN REACH; BED WHEELS LOCKED AND BED IN LOWEST POSITION
[2020-02-09] VITALS (31 sets, daily range): BP systolic 99–153; BP diastolic 61–88
[2020-02-09] MEDS: FUROSEMIDE 10 MG/ML 2ML VIAL IV SCH ×2 (00:56→14:49)
[2020-02-09 04:00] LABS: ABG BASE EXCESS 2.1 mmol/L (-2.0-3.0); ABG HCO3 30.1 mmol/L (21.0-28.0); ABG OXYGEN SATURATION 99.3 % (95.0-99.0); ABG PCO2 61 mmHg (35-48)
[2020-02-09 04:20] LABS: BASOPHILS % (AUTO) 0.1 % (0.0-5.0); HEMATOCRIT 33.8 % (42-54); LYMPHOCYTES % (AUTO) 2.5 % (21.0-51.0); MEAN CORPUSCULAR HEMOGLOBIN 25.5 pg (27.0-33.0); MEAN CORPUSCULAR HGB CONC 29.9 g/dL (32.0-36.0); MEAN CORPUSCULAR VOLUME 85.4 fL (79-99); MONOCYTES % (AUTO) 3.3 % (3.0-13.0); NEUTROPHILS % (AUTO) 93.1 % (40.0-77.0); PLATELET COUNT (AUTO) 247 K/uL (130-400); RED BLOOD CELL COUNT(AUTO) 3.96 MIL/uL (4.50-6.20); RED CELL DISTRIBUTION WIDTH 14.1 % (11.0-15.5); WHITE BLOOD COUNT (AUTO) 13.4 K/uL (4.8-10.8)
[2020-02-09 04:34] LABS: ALBUMIN 2.4 g/dL (3.5-5.0); BILIRUBIN,TOTAL 0.7 mg/dL (0.2-1.0); CREATININE 1.3 mg/dL (0.5-1.5); CRP QUANTITATIVE 101.3 mg/L (0.00-9.0); MAGNESIUM 2.8 mg/dL (1.80-2.40); PHOSPHORUS 3.8 mg/dL (2.5-4.9); POTASSIUM 4.9 mmol/L (3.5-5.1); TOTAL PROTEIN, SERUM 7.4 g/dL (6.0-8.3)
--- NOTE | 2020-02-09 07:05 | NUR ---
REPORT GIVEN TO SWAPNIL MADRIGAL; VSS ON BIPAP; PT REMAINS IN TRIPOD POSITION FOR COMFORT; NO S/S ACUTE DISTRESS NOTED; RELINQUISHED PT CARE AT THIS TIME
[2020-02-09] MEDS: AZITHROMYCIN 500MG+NS 250ML 250 ML IV SCH (08:00)
[2020-02-09] MEDS: CEFTRIAXONE SODIUM 1 GM IVP SCH ×2 (08:00→20:27)
[2020-02-09] MEDS: GUAIFENESIN 600 MG TABLET.ER PO SCH ×2 (08:01→20:29)
[2020-02-09] MEDS: METHYLPREDNISOLONE SOD SUCC 40MG/ML 1ML IVP SCH ×2 (08:01→20:27)
[2020-02-09] MEDS: ASCORBIC ACID 500 MG TAB PO SCH (08:01)
[2020-02-09] MEDS: CLOPIDOGREL BISULFATE 75 MG TAB PO SCH (08:01)
[2020-02-09] MEDS: ASPIRIN 81MG TAB.CHEW PO SCH (08:01)
[2020-02-09] MEDS: POTASSIUM CHLORIDE 10 MEQ/TAB.SA PO SCH ×2 (08:02→20:28)
[2020-02-09] MEDS: METOPROLOL TARTRATE 25 MG TAB PO SCH ×2 (08:02→20:29)
[2020-02-09] MEDS: ZINC SULFATE 220 CAPSULE PO SCH (08:02)
[2020-02-09] MEDS: ENOXAPARIN SODIUM 100 MG/1 ML SQ SCH ×2 (08:03→20:28)
[2020-02-09] MEDS: INSULIN HUMULIN R 100 UNIT/ML 3ML SQ SCH ×4 (08:43→20:32)
--- NOTE | 2020-02-09 11:58 | NUR ---
PHONE CALL ATTEMPTED TO UPDATE FAMILY, NO ANSWER.
[2020-02-09] MEDS: LISINOPRIL 5 MG TABLET PO SCH (20:28)
[2020-02-09] MEDS: ATORVASTATIN CALCIUM 40 MG TABLET PO SCH (20:29)
[2020-02-10] VITALS (31 sets, daily range): BP systolic 107–144; BP diastolic 53–85
[2020-02-10] MEDS: FUROSEMIDE 10 MG/ML 2ML VIAL IV SCH ×2 (01:25→12:52)
[2020-02-10] MEDS: INSULIN GLARGINE 100 UNITS/ML 10 ML VIAL SQ SCH ×2 (01:29→21:24)
[2020-02-10 04:30] LABS: BASOPHILS % (AUTO) 0.1 % (0.0-5.0); HEMATOCRIT 32.8 % (42-54); LYMPHOCYTES % (AUTO) 3.1 % (21.0-51.0); MEAN CORPUSCULAR HEMOGLOBIN 26.2 pg (27.0-33.0); MEAN CORPUSCULAR HGB CONC 30.8 g/dL (32.0-36.0); MEAN CORPUSCULAR VOLUME 85.2 fL (79-99); MONOCYTES % (AUTO) 3.3 % (3.0-13.0); NEUTROPHILS % (AUTO) 92.5 % (40.0-77.0); PLATELET COUNT (AUTO) 226 K/uL (130-400); RED BLOOD CELL COUNT(AUTO) 3.85 MIL/uL (4.50-6.20); RED CELL DISTRIBUTION WIDTH 14.2 % (11.0-15.5); WHITE BLOOD COUNT (AUTO) 10.5 K/uL (4.8-10.8)
[2020-02-10 04:59] LABS: ALBUMIN 2.4 g/dL (3.5-5.0); BILIRUBIN,TOTAL 0.6 mg/dL (0.2-1.0); CREATININE 1.2 mg/dL (0.5-1.5); CRP QUANTITATIVE 64.2 mg/L (0.00-9.0); POTASSIUM 4.6 mmol/L (3.5-5.1); TOTAL PROTEIN, SERUM 7.1 g/dL (6.0-8.3)
[2020-02-10] MEDS: INSULIN LISPRO 100 UNIT/ML 3ML SQ SCH ×7 (06:48→21:24)
--- NOTE | 2020-02-10 07:01 | NUR ---
REPORT GIVEN TO SWAPNIL MARDIGAL; VSS; NO S/S DISTRESS NOTED;RELINQUISHED PT CARE AT THIS TIME
[2020-02-10] MEDS: CLOPIDOGREL BISULFATE 75 MG TAB PO SCH (08:48)
[2020-02-10] MEDS: ZINC SULFATE 220 CAPSULE PO SCH (08:48)
[2020-02-10] MEDS: ASCORBIC ACID 500 MG TAB PO SCH (08:48)
[2020-02-10] MEDS: GUAIFENESIN 600 MG TABLET.ER PO SCH ×2 (08:49→21:00)
[2020-02-10] MEDS: ASPIRIN 81MG TAB.CHEW PO SCH (08:49)
[2020-02-10] MEDS: CEFTRIAXONE SODIUM 1 GM IVP SCH ×2 (08:49→21:22)
[2020-02-10] MEDS: METOPROLOL TARTRATE 25 MG TAB PO SCH ×2 (08:49→21:00)
[2020-02-10] MEDS: POTASSIUM CHLORIDE 10 MEQ/TAB.SA PO SCH ×2 (08:49→21:00)
[2020-02-10] MEDS: ENOXAPARIN SODIUM 100 MG/1 ML SQ SCH ×2 (08:50→21:23)
[2020-02-10] MEDS: METHYLPREDNISOLONE SOD SUCC 40MG/ML 1ML IVP SCH ×3 (08:50→21:22)
[2020-02-10] MEDS: AZITHROMYCIN 500MG+NS 250ML 250 ML IV SCH (08:51)
[2020-02-10] MEDS: ONDANSETRON HCL 4 MG/2 ML VIAL IVP PRN (10:03)
--- NOTE | 2020-02-10 11:15 | NUR ---
RDSCREEN - LOS X 9 Pt positive for COVID-19. 75gm CC, Heart Healthy diet order in place. Poor PO intake.Zofran in place. LBM 02/07/20. BG 273, Alk 166, LDH 441, Alb 2.4. Recommend Glucerna BID Recommend 60mL ProMod QD RD to continue to monitor. Please notify as additional nutrition concerns arise. Thank you.
--- NOTE | 2020-02-10 14:38 | NUR ---
PHONE CALL UPDATED PATIENTS ASHELY ON PATIENT STATUS AND GAVE OPPORTUNITY TO ASK QUESTIONS.
[2020-02-10] MEDS: ATORVASTATIN CALCIUM 40 MG TABLET PO SCH (21:00)
[2020-02-10] MEDS: LISINOPRIL 5 MG TABLET PO SCH (21:00)
--- NOTE | 2020-02-10 22:42 | NUR ---
PT HAS A 8 BEAT RUN OF VTACH WHILE COUGHING THEN RETURNED TO NSR; NO S/S DISTRESS NOTED; VSS; PT DOESNT VOICE ANY COMPLAINTS; WILL CONTINUE TO MONITOR CLOSELY
[2020-02-11] VITALS (25 sets, daily range): BP systolic 109–140; BP diastolic 44–100
[2020-02-11 05:43] LABS: BASOPHILS % (AUTO) 0.1 % (0.0-5.0); HEMATOCRIT 31.7 % (42-54); LYMPHOCYTES % (AUTO) 2.1 % (21.0-51.0); MEAN CORPUSCULAR HEMOGLOBIN 26.2 pg (27.0-33.0); MEAN CORPUSCULAR HGB CONC 31.2 g/dL (32.0-36.0); MEAN CORPUSCULAR VOLUME 83.9 fL (79-99); MONOCYTES % (AUTO) 2.1 % (3.0-13.0); NEUTROPHILS % (AUTO) 94.6 % (40.0-77.0); PLATELET COUNT (AUTO) 228 K/uL (130-400); RED BLOOD CELL COUNT(AUTO) 3.78 MIL/uL (4.50-6.20); RED CELL DISTRIBUTION WIDTH 14.2 % (11.0-15.5); WHITE BLOOD COUNT (AUTO) 11.8 K/uL (4.8-10.8)
[2020-02-11 06:08] LABS: CRP QUANTITATIVE 38.3 mg/L (0.00-9.0); MAGNESIUM 2.9 mg/dL (1.80-2.40)
[2020-02-11] MEDS: INSULIN LISPRO 100 UNIT/ML 3ML SQ SCH ×7 (06:33→20:09)
--- NOTE | 2020-02-11 07:17 | NUR ---
REPORT GIVEN TO SWAPNIL ASHLEY; VSS ON BIPAP; NO S/S DISTRESS NOTED; CHART CHECK DONE; RELINQUISHED PT CARE AT THIS TIME
--- NOTE | 2020-02-11 07:45 | NUR ---
ASSESSMENT Assessment completed/recorded. Pt positioned in upright position per his preference. Pt made aware of importance of position change - declined. Reports generalized, non-specific pain. Facial grimacing/moaning noted during assessment. Call light within reach. Currently on bipap at prescribed settings. PIV to left forearm patent. Urinal in place but pt void was not collected in urinal. Pt aware that he will require ky care secondary to large amount of urine that saturated draw sheet. Side rails up for safety.
[2020-02-11] MEDS: POTASSIUM CHLORIDE 10 MEQ/TAB.SA PO SCH ×2 (09:00→20:06)
--- NOTE | 2020-02-11 09:00 | NUR ---
PT CARE Onset of weak, ineffective cough post administration of PO meds - zinc, vitamin c, guaifenesin, potassium not administered. Pt in upright position - currently on NRB mask/R.T. Will observe pt tolerance of oxygen support. Pt remains tachypneic. Full bed bath rendered as pt was incontinent of large amount of yellow urine. Pt was placed back on bipap mask prior to completion of bed bath secondary to desaturation - placed on bipap mask at 0940.
[2020-02-11] MEDS: CEFTRIAXONE SODIUM 1 GM IVP SCH ×2 (09:02→20:05)
[2020-02-11] MEDS: GUAIFENESIN 600 MG TABLET.ER PO SCH ×2 (09:02→20:06)
[2020-02-11] MEDS: METHYLPREDNISOLONE SOD SUCC 40MG/ML 1ML IVP SCH ×3 (09:02→20:11)
[2020-02-11] MEDS: ASCORBIC ACID 500 MG TAB PO SCH (09:02)
[2020-02-11] MEDS: CLOPIDOGREL BISULFATE 75 MG TAB PO SCH (09:02)
[2020-02-11] MEDS: AZITHROMYCIN 500MG+NS 250ML 250 ML IV SCH (09:02)
[2020-02-11] MEDS: METOPROLOL TARTRATE 25 MG TAB PO SCH ×2 (09:03→20:06)
[2020-02-11] MEDS: ASPIRIN 81MG TAB.CHEW PO SCH (09:09)
[2020-02-11] MEDS: ZINC SULFATE 220 CAPSULE PO SCH (09:10)
[2020-02-11] MEDS: ENOXAPARIN SODIUM 100 MG/1 ML SQ SCH ×2 (09:11→20:06)
[2020-02-11 11:12] LABS: ABG BASE EXCESS 6.8 mmol/L (-2.0-3.0); ABG HCO3 31.8 mmol/L (21.0-28.0); ABG OXYGEN SATURATION 92.9 % (95.0-99.0); ABG PCO2 46 mmHg (35-48)
--- NOTE | 2020-02-11 13:00 | NUR ---
ASSESSMENT No marked changes in assessment. Remains on bipap. Intermittent non-productive cough with noted decreased oxygen saturation and increased work of breathing. Proper positioning of bipap mask ensured. Pt in left side-lying position. No further voided noted - incontinent brief in place. Call light within reach. Pt is in no acute distress. Pt does not interact with caregiver throughout assessment.
--- NOTE | 2020-02-11 16:00 | NUR ---
PT CARE Pt proning attempted from 1609 to 1642 - pt unable to tolerate evidenced by tachypnea and persistent oxygen saturation less that 88% - RR 38-44, saturation 85%. Pt assisted to left side-lying position - reassured.
--- NOTE | 2020-02-11 17:50 | NUR ---
STATUS No acute distress. Remains in side lying position - O2 sat 88-91%, RR 34-37. Call light within reach.
--- NOTE | 2020-02-11 19:00 | NUR ---
SHIFT REPORT Care of pt endorsed to 7P RN.
[2020-02-11] MEDS: ATORVASTATIN CALCIUM 40 MG TABLET PO SCH (20:06)
[2020-02-11] MEDS: DIPHENHYDRAMINE HCL 25 MG CAPSULE PO PRN (20:06)
[2020-02-11] MEDS: LISINOPRIL 5 MG TABLET PO SCH (20:07)
[2020-02-11] MEDS: INSULIN GLARGINE 100 UNITS/ML 10 ML VIAL SQ SCH (20:08)
[2020-02-12] VITALS (34 sets, daily range): BP systolic 94–128; BP diastolic 59–95
[2020-02-12 04:38] LABS: BASOPHILS % (AUTO) 0.1 % (0.0-5.0); HEMATOCRIT 29.7 % (42-54); MEAN CORPUSCULAR HEMOGLOBIN 26.6 pg (27.0-33.0); MEAN CORPUSCULAR HGB CONC 31.6 g/dL (32.0-36.0); MEAN CORPUSCULAR VOLUME 84.1 fL (79-99); MONOCYTES % (AUTO) 3.3 % (3.0-13.0); NEUTROPHILS % (AUTO) 92.3 % (40.0-77.0); PLATELET COUNT (AUTO) 224 K/uL (130-400); RED BLOOD CELL COUNT(AUTO) 3.53 MIL/uL (4.50-6.20); RED CELL DISTRIBUTION WIDTH 14.2 % (11.0-15.5); WHITE BLOOD COUNT (AUTO) 13.1 K/uL (4.8-10.8)
[2020-02-12 04:46] LABS: CREATININE 0.9 mg/dL (0.5-1.5); MAGNESIUM 2.8 mg/dL (1.80-2.40); POTASSIUM 4.3 mmol/L (3.5-5.1)
[2020-02-12] MEDS: INSULIN LISPRO 100 UNIT/ML 3ML SQ SCH ×7 (05:44→20:28)
--- NOTE | 2020-02-12 07:10 | NUR ---
REPORT GIVEN TO SWAPNIL ETIENNE; VSS ON BIPAP;PT DROWSY BUT ORIENTED X3; CHART CHECK DONE; NO S/S DISTRESS NOTED; RELINQUISHED PT CARE AT THIS TIME
[2020-02-12] MEDS: METHYLPREDNISOLONE SOD SUCC 40MG/ML 1ML IVP SCH ×3 (08:30→20:24)
[2020-02-12] MEDS: CLOPIDOGREL BISULFATE 75 MG TAB PO SCH (08:30)
[2020-02-12] MEDS: ASPIRIN 81MG TAB.CHEW PO SCH (08:30)
[2020-02-12] MEDS: ZINC SULFATE 220 CAPSULE PO SCH (08:30)
[2020-02-12] MEDS: METOPROLOL TARTRATE 25 MG TAB PO SCH ×2 (08:30→20:25)
[2020-02-12] MEDS: CEFTRIAXONE SODIUM 1 GM IVP SCH ×2 (08:31→20:24)
[2020-02-12] MEDS: ASCORBIC ACID 500 MG TAB PO SCH (08:32)
[2020-02-12] MEDS: AZITHROMYCIN 500MG+NS 250ML 250 ML IV SCH (08:32)
[2020-02-12] MEDS: ENOXAPARIN SODIUM 100 MG/1 ML SQ SCH ×2 (08:32→20:26)
[2020-02-12] MEDS: POTASSIUM CHLORIDE 10 MEQ/TAB.SA PO SCH ×2 (08:33→20:25)
[2020-02-12] MEDS: GUAIFENESIN 600 MG TABLET.ER PO SCH ×2 (08:33→20:25)
--- NOTE | 2020-02-12 11:05 | NUR ---
RD FOLLOW UP - TUBE FEEDING Tube Feeding Recommendation: Vital AF 1.2 Goal rate of 45mls/hr Recommended Flushes: 300mL Q6hrs Recommendations faxed to [facility]nd [facility] B, ext [phone]. RN Notified NUTRITION NOTE: Pt with BIPAP. Pt not eating by mouth at this time. Pending NGT placement. WBC 13.1, Na 150, Alb 2.4. Vitamin C, Zinc supplementation in place. Noted R/L- Buttock Ulcer RD to continue to monitor. Please notify RD as additional nutrition concerns arise. Thank you.
--- NOTE | 2020-02-12 20:00 | NUR ---
[address] NGT FAILED; DARK RED BLOOD AND CLOTS COMING FROM PTS NASAL CAVITIES FROM INSERTION TRAUMA; WILL FOLLOW UP
[2020-02-12] MEDS: DIPHENHYDRAMINE HCL 25 MG CAPSULE PO PRN (20:25)
[2020-02-12] MEDS: ATORVASTATIN CALCIUM 40 MG TABLET PO SCH (20:25)
[2020-02-12] MEDS: INSULIN GLARGINE 100 UNITS/ML 10 ML VIAL SQ SCH (20:27)
[2020-02-13] VITALS (24 sets, daily range): BP systolic 98–130; BP diastolic 42–86
[2020-02-13 03:45] LABS: BASOPHILS % (AUTO) 0.1 % (0.0-5.0); HEMATOCRIT 29.5 % (42-54); LYMPHOCYTES % (AUTO) 2.4 % (21.0-51.0); MEAN CORPUSCULAR HEMOGLOBIN 26.1 pg (27.0-33.0); MEAN CORPUSCULAR HGB CONC 31.2 g/dL (32.0-36.0); MEAN CORPUSCULAR VOLUME 83.8 fL (79-99); MONOCYTES % (AUTO) 3.7 % (3.0-13.0); PLATELET COUNT (AUTO) 195 K/uL (130-400); RED BLOOD CELL COUNT(AUTO) 3.52 MIL/uL (4.50-6.20); RED CELL DISTRIBUTION WIDTH 14.2 % (11.0-15.5); WHITE BLOOD COUNT (AUTO) 13.1 K/uL (4.8-10.8)
[2020-02-13 04:02] LABS: INR 1.26 (0.85-1.15); PARTIAL THROMBOPLASTIN TIME 32.6 SEC (26.3-35.5); PROTHROMBIN TIME 13.5 SEC (9.6-11.6)
[2020-02-13 04:12] LABS: CREATININE 0.9 mg/dL (0.5-1.5); CRP QUANTITATIVE 23.5 mg/L (0.00-9.0); MAGNESIUM 2.8 mg/dL (1.80-2.40); PHOSPHORUS 3.8 mg/dL (2.5-4.9); POTASSIUM 4.4 mmol/L (3.5-5.1)
[2020-02-13] MEDS: INSULIN LISPRO 100 UNIT/ML 3ML SQ SCH ×7 (05:51→20:24)
--- NOTE | 2020-02-13 07:01 | NUR ---
REPORT GIVEN TO SWAPNIL HASSAN; VSS ON BIPAP; MILDLY ANXIOUS YET EASILY REASSURED; NO S/S DISTRESS NOTED; RELINQUISHED PT CARE AT THIS TIME
[2020-02-13] MEDS: AZITHROMYCIN 500MG+NS 250ML 250 ML IV SCH (07:56)
[2020-02-13] MEDS: CEFTRIAXONE SODIUM 1 GM IVP SCH ×2 (07:57→20:22)
[2020-02-13] MEDS: ENOXAPARIN SODIUM 100 MG/1 ML SQ SCH ×2 (07:58→20:22)
[2020-02-13] MEDS: ZINC SULFATE 220 CAPSULE PO SCH (07:58)
[2020-02-13] MEDS: ASPIRIN 81MG TAB.CHEW PO SCH (07:58)
[2020-02-13] MEDS: ASCORBIC ACID 500 MG TAB PO SCH (07:59)
[2020-02-13] MEDS: CLOPIDOGREL BISULFATE 75 MG TAB PO SCH (07:59)
[2020-02-13] MEDS: METOPROLOL TARTRATE 25 MG TAB PO SCH ×2 (08:00→20:21)
[2020-02-13] MEDS: POTASSIUM CHLORIDE 10 MEQ/TAB.SA PO SCH (08:00)
[2020-02-13] MEDS: METHYLPREDNISOLONE SOD SUCC 40MG/ML 1ML IVP SCH ×3 (08:04→20:21)
[2020-02-13] MEDS: GUAIFENESIN 600 MG TABLET.ER PO SCH ×2 (08:04→20:21)
--- NOTE | 2020-02-13 15:45 | NUR ---
NG tube replacement Pt took off bipap mask and pulled out NG tube. replacement NG tube inserted. pt tolerated well.
[2020-02-13] MEDS: ATORVASTATIN CALCIUM 40 MG TABLET PO SCH (20:21)
[2020-02-13] MEDS: DIPHENHYDRAMINE HCL 25 MG CAPSULE PO PRN (20:21)
[2020-02-13] MEDS: ONDANSETRON HCL 4 MG/2 ML VIAL IVP PRN (20:22)
[2020-02-13] MEDS: INSULIN GLARGINE 100 UNITS/ML 10 ML VIAL SQ SCH (20:25)
[2020-02-14] VITALS (28 sets, daily range): BP systolic 104–150; BP diastolic 53–88
[2020-02-14] MEDS: INSULIN LISPRO 100 UNIT/ML 3ML SQ SCH ×6 (05:29→20:12)
[2020-02-14 06:29] LABS: BASOPHILS % (AUTO) 0.1 % (0.0-5.0); HEMATOCRIT 28.7 % (42-54); LYMPHOCYTES % (AUTO) 2.6 % (21.0-51.0); MEAN CORPUSCULAR HEMOGLOBIN 25.9 pg (27.0-33.0); MEAN CORPUSCULAR VOLUME 83.4 fL (79-99); MONOCYTES % (AUTO) 3.2 % (3.0-13.0); NEUTROPHILS % (AUTO) 92.2 % (40.0-77.0); PLATELET COUNT (AUTO) 167 K/uL (130-400); RED BLOOD CELL COUNT(AUTO) 3.44 MIL/uL (4.50-6.20); RED CELL DISTRIBUTION WIDTH 14.4 % (11.0-15.5); WHITE BLOOD COUNT (AUTO) 14.2 K/uL (4.8-10.8)
[2020-02-14 06:53] LABS: ALBUMIN 2.2 g/dL (3.5-5.0); BILIRUBIN,TOTAL 0.5 mg/dL (0.2-1.0); CRP QUANTITATIVE 50.2 mg/L (0.00-9.0); POTASSIUM 4.5 mmol/L (3.5-5.1); TOTAL PROTEIN, SERUM 6.3 g/dL (6.0-8.3)
--- NOTE | 2020-02-14 07:04 | NUR ---
REPORT GIVEN TO SWAPNIL MOE; VSS ON BIPAP; NO S/S DISTRESS NOTED; CHART CHECK DONE; CALL BLACK AND CELL PHONE WITHIN REACH; NGT IN PLACE PATENT; PT VOICES NO COMPLAINTS; RELINQUISHED PT CARE AT THIS TIME
[2020-02-14] MEDS ORDERED: SODIUM CHLORIDE 0.9% 100 ML IV ONE (08:30)
[2020-02-14] MEDS: ZINC SULFATE 220 CAPSULE PO SCH (08:37)
[2020-02-14] MEDS: ASPIRIN 81MG TAB.CHEW PO SCH (08:37)
[2020-02-14] MEDS: GUAIFENESIN 600 MG TABLET.ER PO SCH ×2 (08:37→20:15)
[2020-02-14] MEDS: CEFTRIAXONE SODIUM 1 GM IVP SCH ×2 (08:37→20:09)
[2020-02-14] MEDS: CLOPIDOGREL BISULFATE 75 MG TAB PO SCH (08:37)
[2020-02-14] MEDS: METHYLPREDNISOLONE SOD SUCC 40MG/ML 1ML IVP SCH ×3 (08:38→20:09)
[2020-02-14] MEDS: ENOXAPARIN SODIUM 100 MG/1 ML SQ SCH ×2 (08:38→20:14)
[2020-02-14] MEDS: ASCORBIC ACID 500 MG TAB PO SCH (08:38)
[2020-02-14] MEDS: METOPROLOL TARTRATE 25 MG TAB PO SCH ×2 (08:39→20:14)
[2020-02-14] MEDS: FUROSEMIDE 10 MG/ML 2ML VIAL IV SCH ×2 (11:34→23:21)
[2020-02-14] MEDS: INSULIN GLARGINE 100 UNITS/ML 10 ML VIAL SQ SCH (20:13)
[2020-02-14] MEDS: ATORVASTATIN CALCIUM 40 MG TABLET PO SCH (20:14)
[2020-02-15] VITALS (21 sets, daily range): BP systolic 96–163; BP diastolic 55–90
[2020-02-15 04:41] LABS: BASOPHILS % (AUTO) 0.1 % (0.0-5.0); HEMATOCRIT 27.3 % (42-54); LYMPHOCYTES % (AUTO) 2.5 % (21.0-51.0); MEAN CORPUSCULAR HEMOGLOBIN 25.9 pg (27.0-33.0); MEAN CORPUSCULAR HGB CONC 31.1 g/dL (32.0-36.0); MEAN CORPUSCULAR VOLUME 83.2 fL (79-99); MONOCYTES % (AUTO) 2.5 % (3.0-13.0); NEUTROPHILS % (AUTO) 93.2 % (40.0-77.0); PLATELET COUNT (AUTO) 154 K/uL (130-400); RED BLOOD CELL COUNT(AUTO) 3.28 MIL/uL (4.50-6.20); RED CELL DISTRIBUTION WIDTH 14.1 % (11.0-15.5); WHITE BLOOD COUNT (AUTO) 13.7 K/uL (4.8-10.8)
[2020-02-15 05:19] LABS: B-TYPE NATRIURETIC PEPTIDE 678 pg/mL (0-100)
[2020-02-15 05:20] LABS: CREATININE 1.1 mg/dL (0.5-1.5); CRP QUANTITATIVE 39.5 mg/L (0.00-9.0); POTASSIUM 4.4 mmol/L (3.5-5.1)
[2020-02-15] MEDS: INSULIN LISPRO 100 UNIT/ML 3ML SQ SCH (07:30)
[2020-02-15] MEDS ORDERED: INSULIN LISPRO 100 UNIT/ML 3ML SQ SCH (07:30)
[2020-02-15] MEDS: METHYLPREDNISOLONE SOD SUCC 40MG/ML 1ML IVP SCH ×3 (08:09→20:10)
[2020-02-15] MEDS: CEFTRIAXONE SODIUM 1 GM IVP SCH ×2 (08:09→20:10)
[2020-02-15] MEDS: CLOPIDOGREL BISULFATE 75 MG TAB PO SCH (08:10)
[2020-02-15] MEDS: GUAIFENESIN 600 MG TABLET.ER PO SCH ×2 (08:10→20:12)
[2020-02-15] MEDS: ZINC SULFATE 220 CAPSULE PO SCH (08:10)
[2020-02-15] MEDS: METOPROLOL TARTRATE 25 MG TAB PO SCH ×2 (08:10→20:12)
[2020-02-15] MEDS: ASPIRIN 81MG TAB.CHEW PO SCH (08:10)
[2020-02-15] MEDS: ASCORBIC ACID 500 MG TAB PO SCH (08:10)
[2020-02-15] MEDS: ENOXAPARIN SODIUM 100 MG/1 ML SQ SCH ×2 (08:11→20:13)
[2020-02-15] MEDS: FUROSEMIDE 10 MG/ML 2ML VIAL IV SCH ×2 (09:53→22:55)
[2020-02-15] MEDS: INSULIN HUMULIN R 100 UNIT/ML 3ML SQ SCH ×3 (11:30→20:37)
[2020-02-15] MEDS: ACETAMINOPHEN 325 MG TAB PO PRN (20:11)
[2020-02-15] MEDS: ATORVASTATIN CALCIUM 40 MG TABLET PO SCH (20:12)
[2020-02-15] MEDS: INSULIN GLARGINE 100 UNITS/ML 10 ML VIAL SQ SCH (20:37)
[2020-02-16] VITALS (21 sets, daily range): BP systolic 34–146; BP diastolic 15–81
[2020-02-16 04:08] LABS: BASOPHILS % (AUTO) 0.1 % (0.0-5.0); LYMPHOCYTES % (AUTO) 2.5 % (21.0-51.0); MEAN CORPUSCULAR HEMOGLOBIN 25.9 pg (27.0-33.0); MEAN CORPUSCULAR HGB CONC 31.1 g/dL (32.0-36.0); MEAN CORPUSCULAR VOLUME 83.3 fL (79-99); MONOCYTES % (AUTO) 1.7 % (3.0-13.0); NEUTROPHILS % (AUTO) 94.3 % (40.0-77.0); PLATELET COUNT (AUTO) 192 K/uL (130-400); RED BLOOD CELL COUNT(AUTO) 3.36 MIL/uL (4.50-6.20); RED CELL DISTRIBUTION WIDTH 14.2 % (11.0-15.5); WHITE BLOOD COUNT (AUTO) 17.5 K/uL (4.8-10.8)
[2020-02-16 04:29] LABS: CREATININE 1.1 mg/dL (0.5-1.5); CRP QUANTITATIVE 33.3 mg/L (0.00-9.0); MAGNESIUM 2.7 mg/dL (1.80-2.40); PHOSPHORUS 4.4 mg/dL (2.5-4.9); POTASSIUM 4.3 mmol/L (3.5-5.1)
[2020-02-16 05:01] LABS: B-TYPE NATRIURETIC PEPTIDE 883 pg/mL (0-100)
[2020-02-16] MEDS: METOPROLOL TARTRATE 25 MG TAB PO SCH ×2 (09:22→21:43)
[2020-02-16] MEDS: CEFTRIAXONE SODIUM 1 GM IVP SCH ×2 (09:22→21:43)
[2020-02-16] MEDS: ZINC SULFATE 220 CAPSULE PO SCH (09:22)
[2020-02-16] MEDS: ASCORBIC ACID 500 MG TAB PO SCH (09:22)
[2020-02-16] MEDS: ASPIRIN 81MG TAB.CHEW PO SCH (09:23)
[2020-02-16] MEDS: CLOPIDOGREL BISULFATE 75 MG TAB PO SCH (09:23)
[2020-02-16] MEDS: FUROSEMIDE 10 MG/ML 2ML VIAL IV SCH ×2 (09:23→22:30)
[2020-02-16] MEDS: GUAIFENESIN 600 MG TABLET.ER PO SCH ×2 (09:23→21:43)
[2020-02-16] MEDS: ENOXAPARIN SODIUM 100 MG/1 ML SQ SCH ×2 (09:24→21:43)
[2020-02-16] MEDS: METHYLPREDNISOLONE SOD SUCC 40MG/ML 1ML IVP SCH ×3 (09:36→21:43)
[2020-02-16] MEDS: INSULIN HUMULIN R 100 UNIT/ML 3ML SQ SCH ×4 (11:30→22:10)
[2020-02-16] MEDS: ATORVASTATIN CALCIUM 40 MG TABLET PO SCH (21:43)
[2020-02-16] MEDS: INSULIN GLARGINE 100 UNITS/ML 10 ML VIAL SQ SCH (22:09)
[2020-02-17] VITALS (22 sets, daily range): BP systolic 109–130; BP diastolic 58–80
[2020-02-17 04:58] LABS: BASOPHILS % (AUTO) 0.1 % (0.0-5.0); HEMATOCRIT 27.1 % (42-54); LYMPHOCYTES % (AUTO) 2.5 % (21.0-51.0); MEAN CORPUSCULAR HEMOGLOBIN 26.4 pg (27.0-33.0); MEAN CORPUSCULAR HGB CONC 31.4 g/dL (32.0-36.0); MEAN CORPUSCULAR VOLUME 84.2 fL (79-99); NEUTROPHILS % (AUTO) 94.2 % (40.0-77.0); PLATELET COUNT (AUTO) 183 K/uL (130-400); RED BLOOD CELL COUNT(AUTO) 3.22 MIL/uL (4.50-6.20); RED CELL DISTRIBUTION WIDTH 14.2 % (11.0-15.5); WHITE BLOOD COUNT (AUTO) 19.1 K/uL (4.8-10.8)
[2020-02-17 05:30] LABS: ALBUMIN 2.3 g/dL (3.5-5.0); BILIRUBIN,TOTAL 0.4 mg/dL (0.2-1.0); CRP QUANTITATIVE 20.6 mg/L (0.00-9.0); POTASSIUM 4.2 mmol/L (3.5-5.1); TOTAL PROTEIN, SERUM 6.5 g/dL (6.0-8.3)
[2020-02-17] MEDS: INSULIN HUMULIN R 100 UNIT/ML 3ML SQ SCH ×4 (07:30→21:18)
[2020-02-17] MEDS: METHYLPREDNISOLONE SOD SUCC 40MG/ML 1ML IVP SCH ×3 (09:50→21:16)
[2020-02-17] MEDS: CEFTRIAXONE SODIUM 1 GM IVP SCH ×2 (09:50→21:17)
[2020-02-17] MEDS: ASPIRIN 81MG TAB.CHEW PO SCH (09:51)
[2020-02-17] MEDS: GUAIFENESIN 600 MG TABLET.ER PO SCH ×2 (09:52→21:16)
[2020-02-17] MEDS: CLOPIDOGREL BISULFATE 75 MG TAB PO SCH (09:52)
[2020-02-17] MEDS: METOPROLOL TARTRATE 25 MG TAB PO SCH ×2 (09:52→21:16)
[2020-02-17] MEDS: ASCORBIC ACID 500 MG TAB PO SCH (09:52)
[2020-02-17] MEDS: ZINC SULFATE 220 CAPSULE PO SCH (09:53)
[2020-02-17] MEDS: ENOXAPARIN SODIUM 100 MG/1 ML SQ SCH ×2 (09:54→21:16)
[2020-02-17] MEDS: FUROSEMIDE 10 MG/ML 2ML VIAL IV SCH (09:54)
[2020-02-17] MEDS: ATORVASTATIN CALCIUM 40 MG TABLET PO SCH (21:16)
[2020-02-18] VITALS (10 sets, daily range): BP systolic 98–125; BP diastolic 53–81
[2020-02-18 07:50] LABS: BASOPHILS % (AUTO) 0.1 % (0.0-5.0); HEMATOCRIT 26.4 % (42-54); LYMPHOCYTES % (AUTO) 2.7 % (21.0-51.0); MEAN CORPUSCULAR HEMOGLOBIN 25.6 pg (27.0-33.0); MEAN CORPUSCULAR HGB CONC 29.9 g/dL (32.0-36.0); MEAN CORPUSCULAR VOLUME 85.4 fL (79-99); MONOCYTES % (AUTO) 1.9 % (3.0-13.0); NEUTROPHILS % (AUTO) 94.2 % (40.0-77.0); PLATELET COUNT (AUTO) 157 K/uL (130-400); RED BLOOD CELL COUNT(AUTO) 3.09 MIL/uL (4.50-6.20); RED CELL DISTRIBUTION WIDTH 14.5 % (11.0-15.5); WHITE BLOOD COUNT (AUTO) 12.1 K/uL (4.8-10.8)
[2020-02-18 07:59] LABS: CRP QUANTITATIVE 26.6 mg/L (0.00-9.0)
[2020-02-18] MEDS: CEFTRIAXONE SODIUM 1 GM IVP SCH (08:22)
[2020-02-18] MEDS: ASPIRIN 81MG TAB.CHEW PO SCH (08:22)
[2020-02-18] MEDS: METHYLPREDNISOLONE SOD SUCC 40MG/ML 1ML IVP SCH ×3 (08:22→20:29)
[2020-02-18] MEDS: ASCORBIC ACID 500 MG TAB PO SCH (08:23)
[2020-02-18] MEDS: CLOPIDOGREL BISULFATE 75 MG TAB PO SCH (08:23)
[2020-02-18] MEDS: GUAIFENESIN 600 MG TABLET.ER PO SCH ×2 (08:23→21:00)
[2020-02-18] MEDS: ZINC SULFATE 220 CAPSULE PO SCH (08:25)
[2020-02-18] MEDS: METOPROLOL TARTRATE 25 MG TAB PO SCH ×2 (08:25→20:30)
[2020-02-18] MEDS: ENOXAPARIN SODIUM 100 MG/1 ML SQ SCH ×2 (08:26→20:33)
[2020-02-18] MEDS: INSULIN NPH 100 UNIT/ML 3ML SQ SCH ×2 (09:18→16:12)
[2020-02-18] MEDS: INSULIN HUMULIN R 100 UNIT/ML 3ML SQ SCH ×4 (09:19→20:32)
--- NOTE | 2020-02-18 15:55 | NUR ---
SS referral for Hospice SW attempted telephone call to pt's spouse, however, no answer. Voicemail left. SW will continue to follow. CM notified.
[2020-02-18] MEDS: DIPHENHYDRAMINE HCL 25 MG CAPSULE PO PRN (18:20)
[2020-02-18] MEDS: ATORVASTATIN CALCIUM 40 MG TABLET PO SCH (20:29)
[2020-02-18] MEDS: INSULIN GLARGINE 100 UNITS/ML 10 ML VIAL SQ SCH (21:00)
--- NOTE | 2020-02-18 21:00 | NUR ---
BS 356 BS OF 356 ZACK TRACEY NOTIFIED ORDERS RECEIVED TO CHANGE ACCUCHECKS TO Q6 HOUR AND START LANTUS 5 UNITS QHS.
[2020-02-19] MEDS: INSULIN HUMULIN R 100 UNIT/ML 3ML SQ SCH ×4 (00:54→17:49)
[2020-02-19 04:03] VITALS: BP 122/64
--- NOTE | 2020-02-19 05:17 | NUR ---
PM SHIFT SUMMARY PT A&0X3 ABLE TO MAKE NEEDS KNOWN BY WRITING DOWN REQUESTS, VERBALIZING, AND USING HAND GESTURES. BIPAP ON 02 SATS 94-98%, BIPAP REMOVED FOR ORAL CARE ABLE TO MAINTAIN 02 SAT AT 92% DURING ORAL CARE FOR APPROX 4 MINS. NG TUBE TO RIGHT NARE CONTINOUS TUBE FEED STARTED NO PUMP WAS PREVIOUSLY AVAILABLE IN HOSPITAL AND PT WAS RECEIVING BOLUS FEEDS. NO RESIDUAL ASPIRATED DURING CHECKS. BUSTOS IN PLACE. PT TURNED AND REPOSITIONED FREQUENTLY. NO OTHER CHANGES FROM DOCUMENTED BASELINE SHIFT ASSESSMENT/ACUTE EVENTS OVERNIGHT.
[2020-02-19 06:31] LABS: BASOPHILS % (AUTO) 0.1 % (0.0-5.0); HEMATOCRIT 23.9 % (42-54); LYMPHOCYTES % (AUTO) 2.4 % (21.0-51.0); MEAN CORPUSCULAR HEMOGLOBIN 26.1 pg (27.0-33.0); MEAN CORPUSCULAR VOLUME 84.2 fL (79-99); MONOCYTES % (AUTO) 2.5 % (3.0-13.0); PLATELET COUNT (AUTO) 145 K/uL (130-400); RED BLOOD CELL COUNT(AUTO) 2.84 MIL/uL (4.50-6.20); RED CELL DISTRIBUTION WIDTH 14.6 % (11.0-15.5); WHITE BLOOD COUNT (AUTO) 15.2 K/uL (4.8-10.8)
[2020-02-19 07:13] LABS: BILIRUBIN,TOTAL 0.4 mg/dL (0.2-1.0); CRP QUANTITATIVE 14.9 mg/L (0.00-9.0); TOTAL PROTEIN, SERUM 5.6 g/dL (6.0-8.3)
[2020-02-19 08:35] VITALS: BP 104/72
[2020-02-19] MEDS: METOPROLOL TARTRATE 25 MG TAB PO SCH ×2 (09:00→21:16)
[2020-02-19] MEDS: GUAIFENESIN 600 MG TABLET.ER PO SCH ×2 (09:00→21:00)
[2020-02-19] MEDS: ASCORBIC ACID 500 MG TAB PO SCH (09:47)
[2020-02-19] MEDS: CLOPIDOGREL BISULFATE 75 MG TAB PO SCH (09:47)
[2020-02-19] MEDS: ZINC SULFATE 220 CAPSULE PO SCH (09:48)
[2020-02-19] MEDS: ASPIRIN 81MG TAB.CHEW PO SCH (09:48)
[2020-02-19] MEDS: METHYLPREDNISOLONE SOD SUCC 40MG/ML 1ML IVP SCH ×3 (09:50→21:16)
[2020-02-19] MEDS: INSULIN NPH 100 UNIT/ML 3ML SQ SCH ×2 (09:52→17:48)
[2020-02-19] MEDS: ENOXAPARIN SODIUM 100 MG/1 ML SQ SCH ×2 (09:54→21:16)
--- NOTE | 2020-02-19 11:00 | NUR ---
Hospice referral on hold until further orders. CM made aware.
[2020-02-19 12:28] VITALS: BP 114/73
[2020-02-19 16:26] VITALS: BP 127/78
[2020-02-19 19:42] VITALS: BP 123/69
[2020-02-19] MEDS: ATORVASTATIN CALCIUM 40 MG TABLET PO SCH (21:15)
[2020-02-19] MEDS: INSULIN GLARGINE 100 UNITS/ML 10 ML VIAL SQ SCH (21:17)
[2020-02-19 23:39] VITALS: BP 109/72
[2020-02-20 03:41] VITALS: BP 111/72
[2020-02-20] MEDS: INSULIN HUMULIN R 100 UNIT/ML 3ML SQ SCH ×5 (06:01→23:48)
[2020-02-20 08:07] VITALS: BP 117/82
[2020-02-20] MEDS: METOPROLOL TARTRATE 25 MG TAB PO SCH ×2 (09:00→20:40)
[2020-02-20] MEDS: GUAIFENESIN 600 MG TABLET.ER PO SCH ×2 (09:00→20:41)
[2020-02-20] MEDS: ASPIRIN 81MG TAB.CHEW PO SCH (09:49)
[2020-02-20] MEDS: ZINC SULFATE 220 CAPSULE PO SCH (09:50)
[2020-02-20] MEDS: ASCORBIC ACID 500 MG TAB PO SCH (09:50)
[2020-02-20] MEDS: METHYLPREDNISOLONE SOD SUCC 40MG/ML 1ML IVP SCH ×3 (09:51→20:40)
[2020-02-20] MEDS: CLOPIDOGREL BISULFATE 75 MG TAB PO SCH (09:52)
[2020-02-20] MEDS: INSULIN NPH 100 UNIT/ML 3ML SQ SCH ×2 (09:53→18:04)
[2020-02-20] MEDS: ENOXAPARIN SODIUM 100 MG/1 ML SQ SCH ×2 (09:54→20:40)
[2020-02-20 11:49] VITALS: BP 112/80
--- NOTE | 2020-02-20 13:09 | NUR ---
Hospice referral FOllowed up with nursing. MD still pending to speak with patient/family. Ordering physician no longer on the case. Notified attending and awaiting further orders. CM to continue to follow. CD
[2020-02-20 16:27] VITALS: BP 118/77
--- NOTE | 2020-02-20 18:21 | NUR ---
Hospice f/u Dr. Stinson states will speak to family. Provided patient's 's phone # to Dr. Stinson. Pending further orders.
--- NOTE | 2020-02-20 18:40 | NUR ---
AM SHIFT SUMMARY PT A&0X3 ABLE TO MAKE NEEDS KNOWN BY WRITING DOWN REQUESTS, VERBALIZING, AND USING HAND GESTURES. BIPAP ON 40% FIO2 WITH 02 SATS 96-100%, BIPAP REMOVED FOR ORAL CARE ABLE TO MAINTAIN 02 SAT AT 92% DURING ORAL CARE FOR APPROX 8 MINS. NG TUBE TO RIGHT NARE CONTINUOUS TUBE FEED STARTED. RESIDUALS OF 10 ML ASPIRATED DURING CHECKS. BUSTOS IN PLACE. PT TURNED AND REPOSITIONED FREQUENTLY. NO CHANGES OR ACUTE EVENTS DURING SHIFT.
[2020-02-20 19:28] VITALS: BP 107/73
[2020-02-20] MEDS: INSULIN GLARGINE 100 UNITS/ML 10 ML VIAL SQ SCH (20:38)
[2020-02-20] MEDS: ATORVASTATIN CALCIUM 40 MG TABLET PO SCH (20:40)
[2020-02-20] MEDS: ENOXAPARIN SODIUM 60 MG/0.6 ML SQ SCH (21:00)
[2020-02-20] MEDS: LACTULOSE 20 GM/30 ML UDCUP PO PRN (21:41)
[2020-02-20 23:03] VITALS: BP 117/70
[2020-02-21 03:45] VITALS: BP 114/70
[2020-02-21] MEDS: INSULIN HUMULIN R 100 UNIT/ML 3ML SQ SCH ×3 (05:54→17:34)
[2020-02-21 06:58] LABS: BASOPHILS % (AUTO) 0.1 % (0.0-5.0); HEMATOCRIT 21.9 % (42-54); LYMPHOCYTES % (AUTO) 2.6 % (21.0-51.0); MEAN CORPUSCULAR HEMOGLOBIN 26.5 pg (27.0-33.0); MEAN CORPUSCULAR HGB CONC 31.1 g/dL (32.0-36.0); MEAN CORPUSCULAR VOLUME 85.2 fL (79-99); MONOCYTES % (AUTO) 2.7 % (3.0-13.0); NEUTROPHILS % (AUTO) 93.1 % (40.0-77.0); NUCLEATED RED BLOOD CELLS 0.4 % (0.0-0.19); PLATELET COUNT (AUTO) 182 K/uL (130-400); RED BLOOD CELL COUNT(AUTO) 2.57 MIL/uL (4.50-6.20); RED CELL DISTRIBUTION WIDTH 15.7 % (11.0-15.5); WHITE BLOOD COUNT (AUTO) 19.8 K/uL (4.8-10.8)
[2020-02-21 07:20] LABS: ALBUMIN 2.2 g/dL (3.5-5.0); BILIRUBIN,TOTAL 0.4 mg/dL (0.2-1.0); CREATININE 0.8 mg/dL (0.5-1.5); CRP QUANTITATIVE 6.6 mg/L (0.00-9.0); POTASSIUM 3.7 mmol/L (3.5-5.1); TOTAL PROTEIN, SERUM 5.9 g/dL (6.0-8.3)
[2020-02-21 08:00] VITALS: BP 127/63
[2020-02-21 08:10] LABS: HEMATOCRIT 22.5 % (42-54)
[2020-02-21] MEDS: ZINC SULFATE 220 CAPSULE PO SCH (08:12)
[2020-02-21] MEDS: CLOPIDOGREL BISULFATE 75 MG TAB PO SCH (08:12)
[2020-02-21] MEDS: ASPIRIN 81MG TAB.CHEW PO SCH (08:13)
[2020-02-21] MEDS: ENOXAPARIN SODIUM 60 MG/0.6 ML SQ SCH (08:13)
[2020-02-21] MEDS: ASCORBIC ACID 500 MG TAB PO SCH (08:14)
[2020-02-21] MEDS: DEXAMETHASONE 4 MG TAB PO SCH (08:14)
[2020-02-21] MEDS: INSULIN NPH 100 UNIT/ML 3ML SQ SCH ×2 (08:15→16:30)
[2020-02-21] MEDS ORDERED: PHARMACY COMMUNICATION MISC SCH (10:00)
[2020-02-21] MEDS ORDERED: GUAIFENESIN SUGAR-FREE 100 MG/5 ML UDCUP PO SCH ×2 (10:00→21:00)
[2020-02-21] MEDS ORDERED: SODIUM CHLORIDE 0.9% 250 ML IV ONE ×2 (10:44→20:08)
[2020-02-21] MEDS: METOPROLOL TARTRATE 25 MG TAB PO SCH ×2 (10:47→20:41)
--- NOTE | 2020-02-21 17:48 | NUR ---
AM SHIFT SUMMARY PT A&0X3 ABLE TO MAKE NEEDS KNOWN BY WRITING DOWN REQUESTS, VERBALIZING, AND USING HAND GESTURES. BIPAP ON 40% FIO2 WITH 02 SATS 96-100%, BIPAP REMOVED FOR ORAL CARE ABLE TO MAINTAIN 02 SAT AT 95% DURING ORAL CARE FOR APPROX 10 MINS. PATIENT COMPLAINTS OF STOMACH CRAMPING THIS AM, NOTIFIED MD WHO SAID TO LEAVE TUBE FEED OFF FOR AWHILE AND RESTART LATER IN THE DAY. NO RESIDUALS ASPIRATED DURING CHECKS. BUSTOS IN PLACE. PT TURNED AND REPOSITIONED FREQUENTLY. 1 UNIT OF BLOOD COMPLETED AND ANOTHER WAITING TO BE GIVEN. NO CHANGES OR ACUTE EVENTS DURING SHIFT.
[2020-02-21 18:04] VITALS: BP 116/69
--- NOTE | 2020-02-21 19:39 | NUR ---
OCCULT BLOOD NOTED IN CHART OCCULT BLOOD +, NEON ELECTRICIAN PROVIDER NOTIFIED DR TUCKER ORDERS REVIEWED ANDENTERED BY DR TUCKER.
[2020-02-21] MEDS: PANTOPRAZOLE 40 MG/VIAL IVP SCH (20:41)
[2020-02-21] MEDS: ATORVASTATIN CALCIUM 40 MG TABLET PO SCH (20:41)
--- NOTE | 2020-02-21 20:50 | NUR ---
SHIRLEY SPOKE WITH PHARMACIST TO CLARIFY DOSAGE OF LIQUID GUAIFENESIN ORDERED 1200 MG (60ML), STATES DOSAGE IS TOO HIGH WILL CHANGE TO 200MG Q4 HOURS. Addendum: 02/22/20 at 0353 by ANATOLY FLORES RN RN PHARMACIST TO CHANGE ORDER TO 600 MG Q 6 HOURS.
[2020-02-21] MEDS: GUAIFENESIN SUGAR-FREE 100 MG/5 ML UDCUP PO SCH (20:54)
[2020-02-21 20:58] VITALS: BP 119/81
--- NOTE | 2020-02-21 22:11 | NUR ---
BLOOD PRODUCT RECEIVED IN REPORT PT TO RECEIVE 2 UNITS PRBC AND ONLY RECEIVED ONE UNIT ON DAY SHIFT CALLED LAB TO VERIFY SECOND UNIT AVAILABLE PER LAB INITIAL ORDER WAS ONLY FOR 1 UNIT PER OUTER DIAMETER GRINDER KRISTIAN PORTILLO PT TO RECEIVE [address] ADDITIONAL ORDER FOR ONE MORE UNIT. Addendum: 02/21/20 at 2224 by ANATOLY FLORES RN RN AWAITING NOTIFICATION FROM LAB THAT BLOOD PRODUCT IS READY TO TRANSFUSE.
[2020-02-21 23:20] VITALS: BP 119/81
[2020-02-22] MEDS: INSULIN HUMULIN R 100 UNIT/ML 3ML SQ SCH ×5 (00:02→23:44)
--- NOTE | 2020-02-22 02:37 | NUR ---
BLOOD TRANSFUSION PT RECEIVED ADDITIONAL ONE UNIT PRBC FOR A TOTAL OF 2 UNITS WITHOUT INCIDENT. ORDER PLACED FOR RECHECK H/H PER PROTOCOL.
[2020-02-22] MEDS: GUAIFENESIN SUGAR-FREE 100 MG/5 ML UDCUP PO SCH ×4 (03:00→21:25)
[2020-02-22 05:02] VITALS: BP 111/76
[2020-02-22] MEDS: INSULIN NPH 100 UNIT/ML 3ML SQ SCH ×2 (05:59→16:12)
[2020-02-22 06:15] LABS: BASOPHILS % (AUTO) 0.1 % (0.0-5.0); EOSINOPHILS % (AUTO) 0.4 % (0.0-8.0); HEMATOCRIT 29.2 % (42-54); LYMPHOCYTES % (AUTO) 4.7 % (21.0-51.0); MEAN CORPUSCULAR HEMOGLOBIN 27.3 pg (27.0-33.0); MEAN CORPUSCULAR HGB CONC 31.5 g/dL (32.0-36.0); MEAN CORPUSCULAR VOLUME 86.6 fL (79-99); NEUTROPHILS % (AUTO) 91.5 % (40.0-77.0); NUCLEATED RED BLOOD CELLS 0.7 % (0.0-0.19); PLATELET COUNT (AUTO) 145 K/uL (130-400); RED BLOOD CELL COUNT(AUTO) 3.37 MIL/uL (4.50-6.20); RED CELL DISTRIBUTION WIDTH 15.2 % (11.0-15.5); WHITE BLOOD COUNT (AUTO) 15.7 K/uL (4.8-10.8)
[2020-02-22 06:24] LABS: CREATININE 0.8 mg/dL (0.5-1.5); POTASSIUM 4.2 mmol/L (3.5-5.1)
[2020-02-22] MEDS: ZINC SULFATE 220 CAPSULE PO SCH (07:48)
[2020-02-22] MEDS: ASCORBIC ACID 500 MG TAB PO SCH (07:48)
[2020-02-22] MEDS: CLOPIDOGREL BISULFATE 75 MG TAB PO SCH (07:48)
[2020-02-22] MEDS: ASPIRIN 81MG TAB.CHEW PO SCH (07:48)
[2020-02-22] MEDS: METOPROLOL TARTRATE 25 MG TAB PO SCH ×2 (07:49→21:23)
[2020-02-22] MEDS: DEXAMETHASONE 4 MG TAB PO SCH (07:49)
[2020-02-22] MEDS: PANTOPRAZOLE 40 MG/VIAL IVP SCH ×2 (07:58→21:22)
[2020-02-22 08:00] VITALS: BP 112/73
[2020-02-22 12:00] VITALS: BP 110/67
[2020-02-22 16:00] VITALS: BP 117/67
[2020-02-22] MEDS: LACTULOSE 20 GM/30 ML UDCUP PO PRN (16:24)
--- NOTE | 2020-02-22 20:00 | NUR ---
ASSESSMENT ENCOUNTERED PT IN HIGH PALACIOS'S POSITION, A&OX3, ON BIPAP, COMMUNICATING VIA WRITING ON NOTEBOOK AND YES/NO QUESTIONS. PT DENIES PAIN, SOB, NAUSEA. NGT TO TUBE FEEDING, NO RESIDUALS ASPIRATED, TOLERATING WATER AND MEDICATION WITH NO THROAT CLEARING OR COUGH. BUSTOS CATH IN PLACE, PT REMAINING IN PALACIOS'S POSITION, CALL LIGHT WITHIN REACH.
[2020-02-22 20:12] VITALS: BP 124/76
[2020-02-22] MEDS: BENZONATATE 100 MG CAPSULE PO PRN (21:22)
[2020-02-22] MEDS: ATORVASTATIN CALCIUM 40 MG TABLET PO SCH (21:22)
[2020-02-22 23:21] VITALS: BP 108/71
[2020-02-23] VITALS (8 sets, daily range): BP systolic 84–136; BP diastolic 47–87
[2020-02-23] MEDS: GUAIFENESIN SUGAR-FREE 100 MG/5 ML UDCUP PO SCH ×4 (03:13→23:06)
[2020-02-23 04:57] LABS: CREATININE 0.7 mg/dL (0.5-1.5); POTASSIUM 4.3 mmol/L (3.5-5.1)
[2020-02-23 05:44] LABS: BASOPHILS % (AUTO) 0.1 % (0.0-5.0); EOSINOPHILS % (AUTO) 0.5 % (0.0-8.0); HEMATOCRIT 29.1 % (42-54); LYMPHOCYTES % (AUTO) 3.9 % (21.0-51.0); MEAN CORPUSCULAR HEMOGLOBIN 27.6 pg (27.0-33.0); MEAN CORPUSCULAR HGB CONC 31.6 g/dL (32.0-36.0); MEAN CORPUSCULAR VOLUME 87.4 fL (79-99); MONOCYTES % (AUTO) 1.7 % (3.0-13.0); NEUTROPHILS % (AUTO) 92.7 % (40.0-77.0); NUCLEATED RED BLOOD CELLS 0.4 % (0.0-0.19); PLATELET COUNT (AUTO) 141 K/uL (130-400); RED BLOOD CELL COUNT(AUTO) 3.33 MIL/uL (4.50-6.20); RED CELL DISTRIBUTION WIDTH 16.3 % (11.0-15.5)
[2020-02-23] MEDS: INSULIN HUMULIN R 100 UNIT/ML 3ML SQ SCH ×3 (06:11→18:29)
--- NOTE | 2020-02-23 06:24 | NUR ---
Provided mouth care to pt. Pt tolerated well. Oxygen sat remain 92% or greater. No s/s of distress noted at this time. Will continue to monitor.
[2020-02-23] MEDS: INSULIN NPH 100 UNIT/ML 3ML SQ SCH ×2 (06:35→18:31)
[2020-02-23] MEDS: ASPIRIN 81MG TAB.CHEW PO SCH (07:51)
[2020-02-23] MEDS: DEXAMETHASONE 4 MG TAB PO SCH (07:51)
[2020-02-23] MEDS: ZINC SULFATE 220 CAPSULE PO SCH (07:52)
[2020-02-23] MEDS: METOPROLOL TARTRATE 25 MG TAB PO SCH ×2 (07:52→23:06)
[2020-02-23] MEDS: ASCORBIC ACID 500 MG TAB PO SCH (07:52)
[2020-02-23] MEDS: CLOPIDOGREL BISULFATE 75 MG TAB PO SCH (07:53)
[2020-02-23] MEDS: PANTOPRAZOLE 40 MG/VIAL IVP SCH ×2 (09:43→23:16)
[2020-02-23] MEDS: ACETAMINOPHEN 325 MG TAB PO PRN (09:44)
[2020-02-23] MEDS ORDERED: FUROSEMIDE 10 MG/ML 2ML VIAL IV SCH (10:45)
--- NOTE | 2020-02-23 12:39 | NUR ---
DCP Referral received for hospice. SW phoned pt's spouse, however, no answer; voicemail left to contact this worker.
--- NOTE | 2020-02-23 14:50 | NUR ---
DCP Telephone call to pt's spouse at [phone] to discuss hospice referral. Per spouse, MD has not spoken with her regarding hospice. Referral on hold. Pending MD conversation with spouse at her request. CM made aware.
--- NOTE | 2020-02-23 14:51 | NUR ---
07-15 SHIFT SUMMARY PT A&OX3 ABLE TO MAKE NEEDS KNOWN BY WRITING AND USING GESTURES BIPAP ON. ORAL CARE PROVIDED PT ABLE TO MAINTAIN 02 SAT DOWN TO 88% DURING CARE AND BIPAP REAPPLIED. NG TO RIGHT NARE WITH CONTINUOS TUBE FEED INFUSING, HOSPITAL OUT OF VITAL AF PER PIPE LAYER HELPER TO USE VITAL HP UNTIL AVAILABLE. NOTED INCREASE IN EDEMA TO LOWER EXTREMITIES REVIEWED WITH REGISTRATION MANAGER AND ORDER FOR ONE TIME DOSE OF LASIX RECEIVED.
--- NOTE | 2020-02-23 17:09 | NUR ---
HOLLY PLAN ORDER RECEIVED FOR HOSPICE. INFO GIVEN TO STEEL BARREL REAMER. PER STEEL BARREL REAMER FAMILY REQUESTING CALL FROM TO DISCUSS CASE. LET JULIO C KNOW GAVE HIM NUMBER TO CALL. SAID WOULD LET DR. VENTURA KNOW. Addendum: 02/23/20 at 1711 by ISABEL LU RN CM Amended: Links added.
[2020-02-23] MEDS: LACTULOSE 20 GM/30 ML UDCUP PO PRN (18:31)
[2020-02-23] MEDS: ATORVASTATIN CALCIUM 40 MG TABLET PO SCH (23:06)
[2020-02-23] MEDS: ONDANSETRON HCL 4 MG/2 ML VIAL IVP PRN (23:08)
[2020-02-24] MEDS: INSULIN HUMULIN R 100 UNIT/ML 3ML SQ SCH ×5 (00:59→22:46)
[2020-02-24] MEDS: GUAIFENESIN SUGAR-FREE 100 MG/5 ML UDCUP PO SCH ×4 (02:21→22:43)
[2020-02-24 04:39] VITALS: BP 111/68
[2020-02-24] MEDS: INSULIN NPH 100 UNIT/ML 3ML SQ SCH ×2 (05:18→18:15)
[2020-02-24 08:44] VITALS: BP 111/69
[2020-02-24] MEDS: PANTOPRAZOLE 40 MG/VIAL IVP SCH ×2 (10:00→22:43)
[2020-02-24] MEDS: DEXAMETHASONE 4 MG TAB PO SCH (10:00)
[2020-02-24] MEDS: CLOPIDOGREL BISULFATE 75 MG TAB PO SCH (10:00)
[2020-02-24] MEDS: ASCORBIC ACID 500 MG TAB PO SCH (10:01)
[2020-02-24] MEDS: METOPROLOL TARTRATE 25 MG TAB PO SCH ×2 (10:01→22:43)
[2020-02-24] MEDS: ZINC SULFATE 220 CAPSULE PO SCH (10:01)
[2020-02-24] MEDS: ASPIRIN 81MG TAB.CHEW PO SCH (10:01)
[2020-02-24 12:47] VITALS: BP 109/70
[2020-02-24 16:13] VITALS: BP 121/79
--- NOTE | 2020-02-24 18:38 | NUR ---
Provided mouth care x2 today. Pt cleaned and suctioned mouth with assistance. Oxygen saturation remained above 90%. Pt. tolerated well.
[2020-02-24 20:55] VITALS: BP 121/73
[2020-02-24] MEDS: ATORVASTATIN CALCIUM 40 MG TABLET PO SCH (22:43)
[2020-02-25] VITALS (7 sets, daily range): BP systolic 100–119; BP diastolic 59–77
[2020-02-25] MEDS: GUAIFENESIN SUGAR-FREE 100 MG/5 ML UDCUP PO SCH (04:55)
[2020-02-25] MEDS: INSULIN HUMULIN R 100 UNIT/ML 3ML SQ SCH ×4 (06:00→18:14)
[2020-02-25] MEDS: INSULIN NPH 100 UNIT/ML 3ML SQ SCH ×2 (08:36→18:13)
[2020-02-25] MEDS: DEXAMETHASONE 4 MG TAB PO SCH (08:38)
[2020-02-25] MEDS: ASCORBIC ACID 500 MG TAB PO SCH (08:38)
[2020-02-25] MEDS: ZINC SULFATE 220 CAPSULE PO SCH (08:38)
[2020-02-25] MEDS: PANTOPRAZOLE 40 MG/VIAL IVP SCH ×2 (08:38→22:41)
[2020-02-25] MEDS: CLOPIDOGREL BISULFATE 75 MG TAB PO SCH (08:39)
[2020-02-25] MEDS: ASPIRIN 81MG TAB.CHEW PO SCH (08:39)
[2020-02-25] MEDS: METOPROLOL TARTRATE 25 MG TAB PO SCH ×2 (08:39→22:41)
[2020-02-25] MEDS ORDERED: GUAIFENESIN SUGAR-FREE 100 MG/5 ML UDCUP PO PRN (10:30)
--- NOTE | 2020-02-25 10:57 | NUR ---
DC PLAN ORDER RECEIVED FOR HOSPICE. PER ORDER SPOKE TO FAMILY. INFO GIVEN TO AMBULANCE MECHANIC. LISA WILL CONTINUE TO FOLLOW. Addendum: 02/25/20 at 1058 by ISABEL LU RN CM Amended: Links added.
--- NOTE | 2020-02-25 11:30 | NUR ---
DCP SW contacted pt's spouse per referral to discuss hospice orders. Pt's spouse reported that she had spoke with MD this morning who explained hospice to her and that she and pt. are in agreement for referral. Pt.'s spouse stated that she would like to research hospice agencies herself prior to providing choice for referral. Pt's spouse provided with names of hospice agencies. Spouse to contact SW later afternoon or tomorrow with choice for referral. CM made aware.
--- NOTE | 2020-02-25 15:04 | NUR ---
Tape from NG tube under pt bipap mask. Auscultate for placement and no sounds noted. AJ, Heavy Mobile Equipment Operator gave order to obtain KUB for placement.
--- NOTE | 2020-02-25 15:12 | NUR ---
per Karen,RN patient will be schedule for procedure X-ray of NG-tube .Will attempt to initiate skilled Physical TYherapy tomorrow 02/26/2020. Addendum: 02/25/20 at 1548 by BUD MARRERO, PT PT Amended: Links added.
[2020-02-25] MEDS: ATORVASTATIN CALCIUM 40 MG TABLET PO SCH (22:41)
[2020-02-26 03:46] VITALS: BP 119/61
[2020-02-26] MEDS: INSULIN HUMULIN R 100 UNIT/ML 3ML SQ SCH ×4 (06:00→17:44)
[2020-02-26 06:19] LABS: BASOPHILS % (AUTO) 0.1 % (0.0-5.0); EOSINOPHILS % (AUTO) 1.5 % (0.0-8.0); LYMPHOCYTES % (AUTO) 3.6 % (21.0-51.0); MEAN CORPUSCULAR HEMOGLOBIN 27.4 pg (27.0-33.0); MEAN CORPUSCULAR HGB CONC 31.8 g/dL (32.0-36.0); MEAN CORPUSCULAR VOLUME 86.2 fL (79-99); MONOCYTES % (AUTO) 3.4 % (3.0-13.0); NEUTROPHILS % (AUTO) 90.6 % (40.0-77.0); PLATELET COUNT (AUTO) 129 K/uL (130-400); RED BLOOD CELL COUNT(AUTO) 3.25 MIL/uL (4.50-6.20); RED CELL DISTRIBUTION WIDTH 17.2 % (11.0-15.5); WHITE BLOOD COUNT (AUTO) 10.6 K/uL (4.8-10.8)
[2020-02-26 06:34] LABS: ALBUMIN 1.8 g/dL (3.5-5.0); BILIRUBIN,TOTAL 0.9 mg/dL (0.2-1.0); CREATININE 0.6 mg/dL (0.5-1.5); POTASSIUM 3.7 mmol/L (3.5-5.1); TOTAL PROTEIN, SERUM 5.7 g/dL (6.0-8.3)
[2020-02-26] MEDS: LACTULOSE 20 GM/30 ML UDCUP PO PRN (06:58)
[2020-02-26 08:00] VITALS: BP 123/63
[2020-02-26] MEDS: METOPROLOL TARTRATE 25 MG TAB PO SCH ×2 (09:40→20:34)
[2020-02-26] MEDS: PANTOPRAZOLE 40 MG/VIAL IVP SCH ×2 (09:40→20:34)
[2020-02-26] MEDS: CLOPIDOGREL BISULFATE 75 MG TAB PO SCH (09:40)
[2020-02-26] MEDS: ASCORBIC ACID 500 MG TAB PO SCH (09:40)
[2020-02-26] MEDS: DEXAMETHASONE 4 MG TAB PO SCH (09:41)
[2020-02-26] MEDS: ZINC SULFATE 220 CAPSULE PO SCH (09:41)
[2020-02-26] MEDS: ASPIRIN 81MG TAB.CHEW PO SCH (09:41)
[2020-02-26] MEDS: INSULIN NPH 100 UNIT/ML 3ML SQ SCH ×2 (09:44→17:50)
--- NOTE | 2020-02-26 10:00 | NUR ---
Stopped tube feeding to administering pt AM meds via NGT, pt choked when administering potassium and stated "I can taste it." Stopped administration of medications. Received order for CXR. NGT in mid esophagus. Advanced tube per CXR recommendations and secured tube to nose. Administered potassium and 300cc water flush. Pt tolerated well. Pt request tube feeding remain off at this time. AA&O. Will resume tube feeding at 1530.
--- NOTE | 2020-02-26 10:40 | NUR ---
RD FOLLOW UP Pt continues with NGT tube feeding, Vital AF 1.2 @45mls/hr. Pt pending discharge to hospice. RD to continue to monitor. Please notify as nutrition concerns arise. Thank you.
[2020-02-26 11:00] VITALS: BP 116/74
--- NOTE | 2020-02-26 14:30 | NUR ---
DCP-[facility] Telephone call from spouse who has elected home with [facility]. Referral faxed to LISA Price made aware.
--- NOTE | 2020-02-26 14:55 | NUR ---
Disregard Skilled Physical Therapy Evaluation, as per SWAPNIL Jones patient and spouse are in agreeable for Hospice Placement. Addendum: 02/26/20 at 1457 by BUD MARRERO, PT PT Amended: Links added.
[2020-02-26 16:00] VITALS: BP 113/77
--- NOTE | 2020-02-26 16:30 | NUR ---
OOHDNR-Completed by Albert and faxed SW by Stoney
[2020-02-26 20:07] VITALS: BP 120/72
[2020-02-26] MEDS: ATORVASTATIN CALCIUM 40 MG TABLET PO SCH (20:34)
[2020-02-26 23:22] VITALS: BP 124/76
[2020-02-27 03:40] VITALS: BP 122/69
[2020-02-27 05:46] LABS: BASOPHILS % (AUTO) 0.1 % (0.0-5.0); EOSINOPHILS % (AUTO) 1.3 % (0.0-8.0); HEMATOCRIT 29.4 % (42-54); LYMPHOCYTES % (AUTO) 6.1 % (21.0-51.0); MEAN CORPUSCULAR HEMOGLOBIN 27.4 pg (27.0-33.0); MEAN CORPUSCULAR HGB CONC 31.6 g/dL (32.0-36.0); MEAN CORPUSCULAR VOLUME 86.7 fL (79-99); MONOCYTES % (AUTO) 3.7 % (3.0-13.0); NEUTROPHILS % (AUTO) 88.3 % (40.0-77.0); PLATELET COUNT (AUTO) 135 K/uL (130-400); RED BLOOD CELL COUNT(AUTO) 3.39 MIL/uL (4.50-6.20); RED CELL DISTRIBUTION WIDTH 17.5 % (11.0-15.5); WHITE BLOOD COUNT (AUTO) 9.2 K/uL (4.8-10.8)
[2020-02-27] MEDS: INSULIN HUMULIN R 100 UNIT/ML 3ML SQ SCH ×3 (06:00→12:00)
[2020-02-27 06:57] LABS: CREATININE 0.5 mg/dL (0.5-1.5); POTASSIUM 3.8 mmol/L (3.5-5.1)
--- NOTE | 2020-02-27 08:00 | NUR ---
Pt reports he can taste tube feeding. Stopped feeding. NGT out of place. Advanced tubed to taped location on tubing with assistance from SWAPNIL Cooley. Pt tolerated well. Secured tube with tape to nose as well as with a clip to pt gown. Administered medications and restart tube feeding. Pt tolerated well. Will continue to monitor.
[2020-02-27 08:43] VITALS: BP 112/65
[2020-02-27] MEDS: PANTOPRAZOLE 40 MG/VIAL IVP SCH (09:39)
[2020-02-27] MEDS: ASCORBIC ACID 500 MG TAB PO SCH (09:40)
[2020-02-27] MEDS: ASPIRIN 81MG TAB.CHEW PO SCH (09:40)
[2020-02-27] MEDS: CLOPIDOGREL BISULFATE 75 MG TAB PO SCH (09:40)
[2020-02-27] MEDS: METOPROLOL TARTRATE 25 MG TAB PO SCH (09:40)
[2020-02-27] MEDS: ZINC SULFATE 220 CAPSULE PO SCH (09:40)
[2020-02-27] MEDS: DEXAMETHASONE 4 MG TAB PO SCH (09:40)
[2020-02-27] MEDS: INSULIN NPH 100 UNIT/ML 3ML SQ SCH (10:05)
--- NOTE | 2020-02-27 11:40 | NUR ---
Received out of hospital DNR for EMS and hospice order from case specialist, but unaware that pt on bipap. Called respiratory and will try to wean pt to NRB. house manager called hospice to determine if bipap provided for pt on hospice. Pending bipap for home and other equipment delivery for discharge.
[2020-02-27 12:15] VITALS: BP 108/77
--- NOTE | 2020-02-27 14:50 | NUR ---
Hospice-Call from [facility] has been delivered at home. CM made aware.
[2020-02-27 15:52] VITALS: BP 121/76
--- NOTE | 2020-02-27 17:44 | NUR ---
Called report to Chantal at [facility]. Reports all equipment is at pt home. Pt family to call when pt arrive via ems. IV removed. Siegel remained intact. NGT clamped. Called [facility] pt [phone] to report pt is being discharge and EMS has arrived for transport. No answer. No s/s of distress noted upon exit from unit
== END 2020-02-27 17:51 | disposition hospice, home (50) | DRG 177 ==
LOC: EDH 12:19 → EDHIP 18:49 → 4CH 02-03 22:31 → 2BH 02-08 22:13 → 2DH 02-18 05:24
PROVIDERS: ADMIT Family Medicine; ATTEND Family Medicine
PROC: 30233K1 Transfusion of Nonautologous Frozen Plasma into Peripheral Vein, Percutaneous Approach (ICD-10-PCS; principal; 2020-02-13)
DX: U07.1 COVID-19 (principal); J96.01 Acute respiratory failure with hypoxia; J12.89 Other viral pneumonia; I50.43 Acute on chronic combined systolic (congestive) and diastolic (congestive) heart failure; I21.4 Non-ST elevation (NSTEMI) myocardial infarction; E87.0 Hyperosmolality and hypernatremia; N17.9 Acute kidney failure, unspecified; J44.0 Chronic obstructive pulmonary disease with (acute) lower respiratory infection; I97.791 Other intraoperative cardiac functional disturbances during other surgery; I47.2 Ventricular tachycardia; Z51.5 Encounter for palliative care; Z66 Do not resuscitate; E11.40 Type 2 diabetes mellitus with diabetic neuropathy, unspecified; I25.10 Atherosclerotic heart disease of native coronary artery without angina pectoris; I48.0 Paroxysmal atrial fibrillation; E78.5 Hyperlipidemia, unspecified; I11.0 Hypertensive heart disease with heart failure; I25.5 Ischemic cardiomyopathy; D64.9 Anemia, unspecified; E87.6 Hypokalemia; Z79.01 Long term (current) use of anticoagulants; Z79.4 Long term (current) use of insulin; Z79.82 Long term (current) use of aspirin; Z79.899 Other long term (current) drug therapy; Z95.1 Presence of aortocoronary bypass graft; Z91.19 Patient's noncompliance with other medical treatment and regimen; Z90.49 Acquired absence of other specified parts of digestive tract; Z82.3 Family history of stroke; Z83.3 Family history of diabetes mellitus; Z82.49 Family history of ischemic heart disease and other diseases of the circulatory system
CPT/HCPCS: 36415; 36430; 36600; 71045; 71250; 74018; 80048; 80053; 80076; 81003; 82140; 82270; 82435; 82550; 82728; 82803; 82947; 82948; 83605; 83615; 83735; 83874; 83880; 84100; 84132; 84145; 84295; 84484; 85014; 85018; 85025; 85378; 85384; 85610; 85730; 86140; 86850; 86900; 86901; 86922; 86927; 87040; 87088; 93005; 94660; 99291; A4344; A6250; C9113; G0378; J0456; J0696; J1650; J1815; J1940; J2060; J2405; J2543; J2920; J2930; J3490; J7050; J8540; P9016; P9017; Q0163; U0003